=== PATIENT | female | born 1965 | race Caucasian/White ===

== ENCOUNTER 2016-09-21 09:36 | Emergency (ER) | payer OTHER ==
[~2016-09-21] VITALS: Ht 160 cm; Wt 89.9 kg
[~2016-09-21 09:36] MED LIST: ALBUAER19 INH; ALMO1TAB PO; CLB/200 PO; EFF75 PO; FERR325T5 PO; INDSR/60 PO; LEVO25TA5 PO; PRLSR20 PO; TOPI100T45 PO
[2016-09-21 09:39] VITALS: TEMP 36.5; Ht 160 cm; Wt 89.9 kg
[2016-09-21] MEDS ORDERED: SODIUM CHLORIDE 0.9% 1000ML 500 ML IV STA (10:06)
[2016-09-21] MEDS ORDERED: SODIUM CHLORIDE 0.9% 1000ML 1,000 ML IV STA (10:06)
--- NOTE | 2016-09-21 10:42 | EMERGENCY ROOM VISIT NOTE ---
History Report prepared by Skip: Erich Antoine Under the Supervision of: Dr. Archie Martin M.D. First contact with patient: 10:03 Chief Complaint: VAGINAL BLEEDING Stated Complaint: VAGINAL BLEEDING History of Present Illness The patient is a 50 year old female who presents to the Emergency Room with complaints of an abnormally heavy menstrual period for the past three days. The patient saturated an overnight pad. The bleeding is menstrual in appearance. The patient's period was on time. Her menstrual cycle has been occurring regularly, however she has noticed that the bleeding is gradually becoming heavier. The patient also complains of some abdominal soreness. She is not on any blood thinners. The patient has never used control to regulate her menstrual cycles. The patient has a history of anemia, for which she has been taking iron supplements. She does have a uterine polyp. Source of History: patient Onset: three days Position: other (vaginal) Symptom Intensity: heavy Quality: other (bleeding) Associated Symptoms: + abdominal pain Review of Systems See HPI for pertinent positives & negatives. A total of 10 systems reviewed and were otherwise negative. Past Medical & Surgical Medical Problems: (1) Hypertension Nos (2) Lumbago (3) Lumbar Disc Displacement (4) Lumbosacral Spondylosis (5) Restless Legs Syndrome Surgical Problems: (1) S/P appendectomy Family History FH: cancer FH: hypertension Social History Smoking Status: Never Smoker Alcohol Use: none Drug Use: none Marital Status: Housing Status: lives with family Occupation Status: employed Current/Historical Medications Scheduled Albuterol Inhaler (Ventolin Inhaler), 2 PUFFS INH QID Celecoxib (CeleBREX), 200 MG PO BID Ferrous Sulfate (Ferrous Sulfate), 325 MG PO DAILY Levothyroxine Sodium (Levothyroxine Sodium), 25 MCG PO DAILY Omeprazole (Prilosec), 20 MG PO DAILY Propranolol Hcl (Propranolol ER), 60 MG PO DAILY Sertraline (Zoloft), 1 TAB PO DAILY Topiramate (Topamax), 100 MG PO QPM Scheduled PRN Almotriptan Malate (Axert), 12.5 MG PO UD PRN for Migraine Oxycodone Ir (Roxicodone Ir), 1-2 TAB PO Q4H PRN for Pain Allergies Coded Allergies: Naproxen (Unverified Allergy, Mild, NAUSEA, 03/06/16) NSAIDs (Verified Adverse Reaction, Unknown, has ulcer, 03/06/16) Physical Exam Vital Signs Date Time Temp Pulse Resp B/P Pulse Ox O2 Delivery O2 Flow Rate FiO2 09/21/16 14:26 66 20 118/80 100 09/21/16 13:11 70 116/74 95 Room Air 09/21/16 11:16 54 20 114/75 100 09/21/16 09:39 36.5 58 16 120/84 96 Room Air Physical Exam GENERAL: Patient is in no acute distress. HEENT: No acute trauma, normocephalic atraumatic, mucous membranes moist, no nasal congestion, no scleral icterus. NECK: No stridor, no adenopathy, no meningismus, trachea is midline. LUNGS: Clear to auscultation bilaterally, no wheeze, no rhonchi, breath sounds equal. HEART: Without murmurs gallops or rubs, regular rate and rhythm. ABDOMEN: Soft, nontender, bowel sounds positive, no hernias, no peritonitis. EXTREMITIES: No cyanosis or edema, full range of motion of all the joints without pain or difficulty, no signs for acute trauma. NEUROLOGIC: Oriented x 3, no acute motor or sensory deficits, no focal weakness. SKIN: No rash, no jaundice, no diaphoresis. VAGINAL: Menstrual-appearing blood from cervix, constant trickle of blood noted , no cervicitis. Medical Decision & Procedures ER Provider Diagnostic Interpretation: US results and stated below per my review and radiologist interpretation: EXAMINATION: PELVIC ULTRASOUND (transabdominal and endovaginal scanning) CLINICAL HISTORY: Vaginal bleeding COMPARISON STUDY: None FINDINGS: The uterus measured 5.4 x 4.8 x 6.2 cm. The endometrial stripe appeared heterogeneous in the fundal fourth portion measures 11 mm. There is a complex 15 mm lesion within the cervix, possibly representing a nabothian gland cyst with internal debris. Other cervical lesions however cannot be excluded. The right ovary was poorly demonstrated. There are few cysts, likely representing ovarian follicles. There is also associated angular soft tissue structure possibly ovarian. An MRI might be considered in follow-up for further evaluation. The left ovary measured 28 x 17 x 15 mm. There is no ultrasonographic evidence of ovarian torsion. It should be noted that ovarian torsion can be present with normal Doppler ultrasonographic findings. There was no evidence of pathologic free pelvic fluid. IMPRESSION: 1. Heterogeneous 11 mm endometrial stripe. 2. Complex 15 mm cervical lesion possibly representing a complex nabothian gland cyst 3. Ultrasonographically normal left ovary 4. Somewhat unusual appearance of the right ovary which appears somewhat angular with adjacent fluid. An MRI might be considered in follow-up for further evaluation Electronically signed by: Kiran Peña M.D. 09/21/2016 12:21 PM Dictated Date/Time: 09/21/2016 12:16 PM Laboratory Results 09/21/16 10:20 09/21/16 10:20 Test 09/21/16 10:20 Red Blood Count 4.51 M/uL (4.2-5.4) Mean Corpuscular Volume 90.5 fL (80-100) Mean Corpuscular Hemoglobin 29.9 pg (25-34) Mean Corpuscular Hemoglobin Concent 33.1 g/dl (32-36) RDW Standard Deviation 41.4 fL (36.4-46.3) RDW Coefficient of Variation 12.6 % (11.5-14.5) Mean Platelet Volume 10.5 fL (7.4-10.4) Prothrombin Time 10.2 SECONDS (9.0-12.0) Prothromb Time International Ratio 1.0 (0.9-1.1) Activated Partial Thromboplast Time 24.8 SECONDS (21.0-31.0) Partial Thromboplastin Ratio 1.0 Anion Gap 11.0 mmol/L (3-11) Est Creatinine Clear Calc Drug Dose 88.2 ml/min Estimated GFR () 96.6 Estimated GFR (Non- 83.4 BUN/Creatinine Ratio 16.7 (10-20) Calcium Level 8.7 mg/dl (8.5-10.1) Human Chorionic Gonadotropin, Qual NEG (NEG) Laboratory results reviewed by me. Medications Administered Medications (Trade) Dose Ordered Sig/Aubrey Route Start Time Stop Time Status Last Admin Dose Admin Sodium Chloride 500 ml @ 999 mls/hr Q31M STAT IV 09/21/16 10:06 09/21/16 10:36 DC 09/21/16 10:23 999 MLS/HR Sodium Chloride (Nss 1000ml) 1,000 ml @ 200 mls/hr Q5H STAT IV 09/21/16 10:06 09/21/16 15:05 DC 09/21/16 10:23 200 MLS/HR Morphine Sulfate (MoRPHine SULFATE INJ) 4 mg NOW STAT IV 09/21/16 13:10 09/21/16 13:11 DC 09/21/16 13:39 4 MG ED Course 1003: The patient was evaluated in room C8. A complete history and physical exam was performed. 1006: NSS 1000 ml @ 200 mls/hr, NSS 500 ml @ 999 mls/hr. 1300: Vaginal exam performed. Patient asked for something for pain. 1310: Morphine Sulfate 4 mg IV. 1320:Spoke with Dr. Ruiz, Obstetrics & Gynecology. He will come to see her in the ED. 1345: Dr. Ruiz is in with the patient. 1350: Dr. Ruiz recommends the patient be started on Aygestin. She can be discharged. 1400: Reassessed the patient. She would like something for pain. Discussed the findings with her. She verbalized understanding and agreement of the treatment plan. The patient is ready for discharge. 1415: The prescription drug monitoring program was evaluated for this patient. Medical Decision Differential diagnosis includes uterine fibroids, heavy menstrual cycle, anemia , electrolyte imbalance, dehydration, coagulopathy. There is no leukocytosis or worrisome anemia. No significant electrolyte abnormality or kidney failure. testing is negative. There is no coagulopathy. Pelvic ultrasound shows a thickened endometrium, a nabothian cyst , right ovary had some fluid around it and the ovary was slightly unusual in appearance and follow-up was suggested. No large uterine fibroid noted. The patient was having menstrual appearing vaginal bleeding from her cervix per my exam. The bleeding was not excessive. I did contact the on-call OB doctor. The patient was seen by OB here in the ER. The patient is being discharged on Aygestin to be seen in the office next week. If her bleeding worsens, she will return to the ED. During the patient's ER stay, she received IV saline, she was given a dose of IV morphine for pain control. She has done well. She is not toxic, she is not tachycardic or hypotensive. [place] Drug Monitoring Program Search Results: patient reviewed within database, no issues identified Consults Time Called: 1310 Consulting Physician: Dr. Ruiz, Obstetrics & Gynecology Returned Call: 1320 1320:Spoke with Dr. Ruiz, Obstetrics & Gynecology. He will come to see her in the ED. Impression Primary Impression: Vaginal bleeding Scribe Attestation The scribe's documentation has been prepared under my direction and personally reviewed by me in its entirety. I confirm that the note above accurately reflects all work, treatment, procedures, and medical decision making performed by me. Departure Information Dispostion Home / Self-Care Prescriptions Oxycodone Ir (Roxicodone Ir) 5 Mg Tab 1-2 TAB PO Q4H Y for Pain, #10 TAB Prov: Archie Martin M.D. 09/21/16 Referrals Jordyn Arevalo M.D. 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
[2016-09-21 10:43] LABS: HEMATOCRIT 40.8 % (37-47); MEAN CELL VOLUME 90.5 fL (80-100); MEAN CORPUSCULAR HEMOGLOBIN 29.9 pg (25-34); MEAN CORPUSCULAR HGB CONC 33.1 g/dl (32-36); MEAN PLATELET VOLUME 10.5 fL (7.4-10.4); PLATELET COUNT 247 K/uL (130-400); RED BLOOD COUNT 4.51 M/uL (4.2-5.4); WHITE BLOOD COUNT 5.37 K/uL (4.8-10.8)
[2016-09-21 11:01] LABS: PROTHROMBIN TIME (PATIENT) 10.2 SECONDS (9.0-12.0)
[2016-09-21 11:12] LABS: PREG INTERNAL NEGATIVE QC NEG CLEAR BACKGROUND; PREG INTERNAL POSITIVE QC POS CONTROL LINE
[2016-09-21 11:14] LABS: BUN/CREATININE RATIO 16.7 (10-20); CALCIUM 8.7 mg/dl (8.5-10.1); CREATININE 0.83 mg/dl (0.60-1.20); POTASSIUM 3.9 mmol/L (3.5-5.1)
[2016-09-21] MEDS ORDERED: SERT50TA PO (11:17)
--- NOTE | 2016-09-21 12:23 | DIAGNOSTIC IMAGING REPORT ---
EXAMINATION: PELVIC ULTRASOUND (transabdominal and endovaginal scanning) CLINICAL HISTORY: Vaginal bleeding COMPARISON STUDY: None FINDINGS: The uterus measured 5.4 x 4.8 x 6.2 cm. The endometrial stripe appeared heterogeneous in the fundal fourth portion measures 11 mm. There is a complex 15 mm lesion within the cervix, possibly representing a nabothian gland cyst with internal debris. Other cervical lesions however cannot be excluded. The right ovary was poorly demonstrated. There are few cysts, likely representing ovarian follicles. There is also associated angular soft tissue structure possibly ovarian. An MRI might be considered in follow-up for further evaluation. The left ovary measured 28 x 17 x 15 mm. There is no ultrasonographic evidence of ovarian torsion. It should be noted that ovarian torsion can be present with normal Doppler ultrasonographic findings. There was no evidence of pathologic free pelvic fluid. IMPRESSION: 1. Heterogeneous 11 mm endometrial stripe. 2. Complex 15 mm cervical lesion possibly representing a complex nabothian gland cyst 3. Ultrasonographically normal left ovary 4. Somewhat unusual appearance of the right ovary which appears somewhat angular with adjacent fluid. An MRI might be considered in follow-up for further evaluation Electronically signed by: Kiran Peña M.D. 09/21/2016 12:21 PM Dictated Date/Time: 09/21/2016 12:16 PM
[2016-09-21] MEDS ORDERED: MoRPHine SULFATE 4 MG/ML 1 ML CARP\\VIAL IV STA (13:10)
[2016-09-21] MEDS ORDERED: OXYC1TAB3 PO (14:10)
[2016-09-21 14:26] VITALS: BP 118/80; PULSE 66; O2SAT 100
== END 2016-09-21 14:29 | disposition home or self-care (01) ==
LOC: C.EDB 09:38 → C.EDC 14:29
DX: N93.9 Abnormal uterine and vaginal bleeding, unspecified (principal); N84.0 Polyp of corpus uteri; I10 Essential (primary) hypertension; G25.81 Restless legs syndrome; Z82.49 Family history of ischemic heart disease and other diseases of the circulatory system; Z79.899 Other long term (current) drug therapy

== ENCOUNTER → 2016-12-13 | Outpatient (CLI) | payer OTHER ==
[~2016-12-13] MED LIST changes: +BUPR-79 PO; +BUSP5TAB59 PO; +CYAN100073; -EFF75 PO; +LITH150C6 PO; +OXYC1TAB3 PO; +QUET1TAB32 PO; +SERT-234 PO; +SERT50TA PO; +SYN50 PO; +TOPI200T14 PO; +VNTHFA/IN INH
== END | disposition home or self-care (01) ==
LOC: C.LABBC 13:21
PROVIDERS: ATTEND Physician Assistant
DX: E53.8 Deficiency of other specified B group vitamins (principal)

== ENCOUNTER 2017-03-04 12:07 | Emergency (ER) | payer OTHER ==
[~2017-03-04] VITALS: Ht 160 cm; Wt 92.0 kg
[~2017-03-04 12:07] MED LIST changes: -BUPR-79 PO; -BUSP5TAB59 PO; -CYAN100073; -LITH150C6 PO; -QUET1TAB32 PO; -SERT-234 PO; -SYN50 PO; -TOPI200T14 PO; -VNTHFA/IN INH
[2017-03-04 12:13] VITALS: Ht 160 cm; Wt 92.0 kg
[2017-03-04 13:04] LABS: HEMATOCRIT 43.1 % (37-47); MEAN CELL VOLUME 92.5 fL (80-100); MEAN CORPUSCULAR HEMOGLOBIN 29.8 pg (25-34); MEAN CORPUSCULAR HGB CONC 32.3 g/dl (32-36); MEAN PLATELET VOLUME 9.7 fL (7.4-10.4); PLATELET COUNT 298 K/uL (130-400); RED BLOOD COUNT 4.66 M/uL (4.2-5.4); WHITE BLOOD COUNT 8.06 K/uL (4.8-10.8)
[2017-03-04 13:07] LABS: URINE APPEARANCE CLEAR (CLEAR); URINE BILIRUBIN NEG (NEG); URINE COLOR YELLOW; URINE NITRITE NEG (NEG); URINE SPECIFIC GRAVITY 1.013 (1.000-1.030); UROBILINOGEN NEG (NEG); ZZUR CULT IF INDIC CLEAN CATCH NO
[2017-03-04 13:09] LABS: MANUAL MICROSCOPIC REQUIRED? NO; REVIEW REQ? NO
[2017-03-04 13:26] LABS: BUN/CREATININE RATIO 15.2 (10-20); CALCIUM 8.8 mg/dl (8.5-10.1); CREATININE 0.9 mg/dl (0.60-1.20); POTASSIUM 3.9 mmol/L (3.5-5.1)
[2017-03-04 13:45] LABS: BENZODIAZEPINE, URINE NEG (NEG); COCAINE,URINE NEG (NEG); PHENCYCLIDINE, URINE NEG (NEG)
[2017-03-04] MEDS ORDERED: QUET1TAB32 PO (14:07)
[2017-03-04] MEDS ORDERED: TOPI200T14 PO (14:07)
[2017-03-04] MEDS ORDERED: BUPR-79 PO (14:07)
[2017-03-04] MEDS ORDERED: SERT-234 PO (14:07)
[2017-03-04] MEDS ORDERED: VNTHFA/IN INH (14:08)
--- NOTE | 2017-03-04 14:57 | EMERGENCY ROOM VISIT NOTE ---
History Report prepared by Skip: Soledad Brown Under the Supervision of: Dr. Avi Vargas M.D. First contact with patient: 12:25 Chief Complaint: MENTAL HEALTH EVALUATION Stated Complaint: SEVERE DEPRESSION/ANXIETY History of Present Illness The patient is a 51 year old female who presents to the Emergency Room with complaints of severe and worsening depression starting a few days ago. The patient had been previously living with her ex. About a month ago, her ex kicked her out of the apartment. She is now living with her mom. She has increased crying episodes. She denies any suicidal or homicidal ideation. The patient has been taking her psychiatric medications as prescribed without relief. She is unable to sleep as normal at night. She eats one meal a day. She denies any recreational drug or alcohol use. The patient denies urinary symptoms , or any other complaints. She no longer has her menstrual periods due to a history of recent DNC and ablation. Source of History: patient Onset: a few days ago Position: other (global) Symptom Intensity: severe Quality: other (depression) Timing: worsening Modifying Factors (Relieving): other (prescribed psychiatric medications without relief) Associated Symptoms: No urinary symptoms Review of Systems All systems have been listed, reviewed, and are negative other than those previously mentioned. Please see Additional Medical History Sheet. Past Medical & Surgical Medical Problems: (1) Hypertension Nos (2) Lumbago (3) Lumbar Disc Displacement (4) Lumbosacral Spondylosis (5) Restless Legs Syndrome Surgical Problems: (1) S/P appendectomy Family History FH: cancer FH: hypertension Social History Smoking Status: Never Smoker Alcohol Use: none Drug Use: none Marital Status: Housing Status: lives with family Occupation Status: employed Current/Historical Medications Scheduled Albuterol Hfa (Ventolin Hfa), 2 PUFFS INH QID Bupropion (Wellbutrin Sr), 150 MG PO DAILY Celecoxib (CeleBREX), 200 MG PO DAILY Ferrous Sulfate (Ferrous Sulfate), 325 MG PO DAILY Levothyroxine Sodium (Levothyroxine Sodium), 25 MCG PO DAILY Omeprazole (Prilosec), 20 MG PO DAILY Propranolol Hcl (Propranolol ER), 60 MG PO DAILY Quetiapine Fumarate (Seroquel), 50 MG PO QPM Sertraline (Zoloft), 100 MG PO DAILY Topiramate (Topamax), 200 MG PO QPM Scheduled PRN Almotriptan Malate (Axert), 12.5 MG PO UD PRN for Migraine Allergies Coded Allergies: Naproxen (Unverified Allergy, Mild, NAUSEA, 03/06/16) NSAIDs (Verified Adverse Reaction, Unknown, has ulcer, 03/06/16) Physical Exam Vital Signs Date Time Temp Pulse Resp B/P (MAP) Pulse Ox O2 Delivery O2 Flow Rate FiO2 03/04/17 15:04 36.7 70 18 126/84 96 03/04/17 12:13 36.7 70 18 126/84 96 Room Air Physical Exam GENERAL: Patient appears despondent, tearful. SKIN: No erythema, pallor, cyanosis or rash HEENT: Normal head, pupils equal, reactive to light and accommodation. LUNGS: Clear to auscultation. No wheezes, no rales, no rhonchi. HEART: No murmurs. No gallops. No rubs ABDOMEN: No masses, no rebound, no hepatomegaly or splenomegaly. EXTREMITIES: No signs of trauma or infection. NEUROLOGIC: Cranial nerves II-XII within normal limits. No gross motor sensory function deficits. PSYCHIATRIC: Awake, alert. Normal affect. Patient appears despondent, tearful. She denies any suicidal or homicidal ideation. Medical Decision & Procedures Laboratory Results 03/04/17 12:46 03/04/17 12:46 Test 03/04/17 12:30 03/04/17 12:46 Urine Color YELLOW Urine Appearance CLEAR (CLEAR) Urine pH 6.0 (4.5-7.5) Urine Specific [place] 1.013 (1.000-1.030) Urine Protein NEG (NEG) Urine Glucose (UA) NEG (NEG) Urine Ketones NEG (NEG) Urine Occult Blood NEG (NEG) Urine Nitrite NEG (NEG) Urine Bilirubin NEG (NEG) Urine Urobilinogen NEG (NEG) Urine Leukocyte Esterase NEG (NEG) Urine Test NEG (NEG) Urine Opiates Screen NEG (NEG) Urine Methadone, Qualitative NEG (NEG) Urine Barbiturates NEG (NEG) Urine Phencyclidine (PCP) Level NEG (NEG) Ur Amphetamine/Methamphetamine NEG (NEG) MDMA (Ecstasy) Screen POS (NEG) Urine Benzodiazepines Screen NEG (NEG) Urine Cocaine Metabolite NEG (NEG) Urine Marijuana (THC) NEG (NEG) Red Blood Count 4.66 M/uL (4.2-5.4) Mean Corpuscular Volume 92.5 fL (80-100) Mean Corpuscular Hemoglobin 29.8 pg (25-34) Mean Corpuscular Hemoglobin Concent 32.3 g/dl (32-36) RDW Standard Deviation 43.6 fL (36.4-46.3) RDW Coefficient of Variation 12.9 % (11.5-14.5) Mean Platelet Volume 9.7 fL (7.4-10.4) Anion Gap 8.0 mmol/L (3-11) Est Creatinine Clear Calc Drug Dose 81.4 ml/min Estimated GFR () 87.0 Estimated GFR (Non- 75.1 BUN/Creatinine Ratio 15.2 (10-20) Calcium Level 8.8 mg/dl (8.5-10.1) Total Bilirubin 0.2 mg/dl (0.2-1) Aspartate Amino Transf (AST/SGOT) 9 U/L (15-37) Alanine Aminotransferase (ALT/SGPT) 15 U/L (12-78) Alkaline Phosphatase 74 U/L (45-117) Total Protein 7.6 gm/dl (6.4-8.2) Albumin 3.8 gm/dl (3.4-5.0) Globulin 3.8 gm/dl (2.5-4.0) Albumin/Globulin Ratio 1.0 (0.9-2) Ethyl Alcohol mg/dL < 3.0 mg/dl (0-3) Laboratory results as stated above per my review. ED Course 1225: Past medical records reviewed. The patient was evaluated in room A08. A complete history and physical examination was performed. 1350: I discussed the patient's case with Cindy, psych liaison nurse. 1500: Upon reevaluation, the patient appeared to have improvement of her symptoms. I discussed today's findings with her. She verbalized agreement of the treatment plan. She was discharged home. Medical Decision Medication Reconciliation: I attest that I have personally reviewed the patient' s current medication list. Blood pressure Screening: Patient was found to have normal blood pressure on screening and does not require follow up. Differential diagnosis includes but is not limited to depression, anxiety, metabolic disorder, endocrinologic problem. Multiple labs were obtained. Please see above. The patient had a long discussion with the psych liaison person who scheduled follow-up appointments for her. The patient is very comfortable with that. She does not feel that she needs to be admitted at this time. The patient is not suicidal/homicidal. Consults Time Called: 1348 Consulting Physician: Cindy psych liaison nurse Returned Call: 1350 I discussed the patient's case with Cindy psych liaison . Impression Primary Impression: Depression Scribe Attestation The scribe's documentation has been prepared under my direction and personally reviewed by me in its entirety. I confirm that the note above accurately reflects all work, treatment, procedures, and medical decision making performed by me. Departure Information Dispostion Home / Self-Care Referrals Jordyn Arevalo M.D. (PCP) Forms HOME CARE DOCUMENTATION FORM, IMPORTANT VISIT INFORMATION Patient Instructions My [facility] Additional Instructions Follow-up with the a psychiatric counselor as scheduled. Return here immediately if you are feeling more depressed, suicidal or homicidal. Continue all of your current medications as prescribed.
[2017-03-04 15:04] VITALS: BP 126/84; PULSE 70; TEMP 36.7; O2SAT 96
== END 2017-03-04 15:05 | disposition home or self-care (01) ==
LOC: C.EDB 12:08 → C.EDA 15:05
DX: F32.9 Major depressive disorder, single episode, unspecified (principal); I10 Essential (primary) hypertension; M47.897 Other spondylosis, lumbosacral region; G25.81 Restless legs syndrome; Z82.49 Family history of ischemic heart disease and other diseases of the circulatory system

== ENCOUNTER → 2017-05-12 | Outpatient (CLI) | payer OTHER ==
[~2017-05-12] MED LIST changes: -ALBUAER19 INH; +BUPR-79 PO; -OXYC1TAB3 PO; +QUET1TAB32 PO; +SERT-234 PO; -SERT50TA PO; -TOPI100T45 PO; +TOPI200T14 PO; +VNTHFA/IN INH
[2017-05-12 13:28] LABS: BASO % 0.2 %; BASO ABS # 0.03 K/uL (0-0.2); COMPLETE YES; EOS % 0.2 %; HEMATOCRIT 43.6 % (37-47); IG% 0.9 %; LYMPH % 4.5 %; MEAN CELL VOLUME 93.2 fL (80-100); MEAN CORPUSCULAR HEMOGLOBIN 30.8 pg (25-34); MEAN PLATELET VOLUME 9.4 fL (7.4-10.4); MONO % 2.2 %; PLATELET COUNT 392 K/uL (130-400); RED BLOOD COUNT 4.68 M/uL (4.2-5.4); WHITE BLOOD COUNT 13.36 K/uL (4.8-10.8)
[2017-05-12 13:47] LABS: BLOOD UREA NITROGEN 13 mg/dl (7-18); CARBON DIOXIDE 21 mmol/L (21-32); CHLORIDE 112 mmol/L (98-107); CREATININE 0.94 mg/dl (0.60-1.20); POTASSIUM 3.9 mmol/L (3.5-5.1); SODIUM 141 mmol/L (136-145)
--- NOTE | 2017-05-16 14:48 | CODING QUERY NO DIAGNOSIS ---
: 1965 TREATMENT RENDERED WITHOUT A DIAGNOSIS To promote full compliance with coding requirements relating to patient care, physician participation is requested in all cases of certified procedural coder uncertainty. Please assist us with providing a diagnosis/symptom for the test(s) below: A diagnosis/symptom was not documented on your Order. A valid diagnosis/symptom is required to bill all insurances. Please remember that we are unable to code a diagnosis of rule out, probable, possible, questionable, or suspected. Tests that require a diagnosis: DOS: 05/12/17 * CBC WITH AUTO DIFFERENTIAL DIAGNOSIS: * LITHIUM DIAGNOSIS: * BLOOD UREA NITROGEN DIAGNOSIS: * CREATININE DIAGNOSIS: * ELECTROLYTES DIAGNOSIS: Provider Signature: Date: Thank you Shivani Dacosta Health Information Management Once completed, please kindly fax back to [phone] For questions please call [phone]
== END | disposition home or self-care (01) ==
LOC: C.LAB 13:05
PROVIDERS: ATTEND Psychiatry & Neurology Psychiatry
DX: Z51.81 Encounter for therapeutic drug level monitoring (principal); Z79.899 Other long term (current) drug therapy

== ENCOUNTER 2017-06-18 09:33 | Inpatient (IN) | payer OTHER ==
[2017-06-18] VITALS (7 sets, daily range): BP systolic 91–127; BP diastolic 59–87; PULSE 49–53; TEMP 36.6–36.7; O2SAT 95–100; Ht 160 cm; Wt 92.9 kg
[~2017-06-18] VITALS: Ht 160 cm; Wt 92.9 kg
[2017-06-18] MEDS ORDERED: SODIUM CHLORIDE 0.9% 1000ML 1,000 ML IV SCH (09:58)
[2017-06-18 10:21] LABS: BASO % 0.6 %; BASO ABS # 0.07 K/uL (0-0.2); COMPLETE YES; EOS % 3.5 %; HEMATOCRIT 44.2 % (37-47); IG% 0.8 %; LYMPH % 9.9 %; LYMPH ABS # 1.18 K/uL (1.2-3.4); MEAN CELL VOLUME 95.1 fL (80-100); MEAN CORPUSCULAR HEMOGLOBIN 30.8 pg (25-34); MEAN CORPUSCULAR HGB CONC 32.4 g/dl (32-36); MEAN PLATELET VOLUME 10.2 fL (7.4-10.4); MONO % 6.8 %; NEUT % 78.4 %; PLATELET COUNT 322 K/uL (130-400); RED BLOOD COUNT 4.65 M/uL (4.2-5.4); WHITE BLOOD COUNT 11.94 K/uL (4.8-10.8)
--- NOTE | 2017-06-18 10:21 | DIAGNOSTIC IMAGING REPORT ---
CHEST ONE VIEW PORTABLE CLINICAL HISTORY: Stroke mental status change COMPARISON STUDY: 03/06/2016 FINDINGS: The bones soft tissues and hemidiaphragms are normal. The cardiomediastinal silhouette is normal. The lungs are clear. The pulmonary vasculature is normal. IMPRESSION: Negative chest. The above report was generated using voice recognition software. It may contain grammatical, syntax or spelling errors. Electronically signed by: Artur Wheeler M.D. 06/18/2017 10:19 AM Dictated Date/Time: 06/18/2017 10:19 AM
[2017-06-18] MEDS ORDERED: CYAN100073 (10:29)
[2017-06-18] MEDS ORDERED: LITH150C6 PO (10:29)
[2017-06-18 10:30] LABS: PROTHROMBIN TIME (PATIENT) 10.4 SECONDS (9.0-12.0)
[2017-06-18 10:38] LABS: BLOOD UREA NITROGEN 12 mg/dl (7-18); BUN/CREATININE RATIO 11.6 (10-20); CALCIUM 9.1 mg/dl (8.5-10.1); CARBON DIOXIDE 24 mmol/L (21-32); CHLORIDE 110 mmol/L (98-107); CREATININE 1.06 mg/dl (0.60-1.20); GLUCOSE 91 mg/dl (70-99); MAGNESIUM 2.4 mg/dl (1.8-2.4); POTASSIUM 3.6 mmol/L (3.5-5.1); SODIUM 140 mmol/L (136-145)
--- NOTE | 2017-06-18 10:54 | DIAGNOSTIC IMAGING REPORT ---
HEAD WITHOUT CONTRAST (CT) CT DOSE: 537.48 mGy.cm HISTORY: Stroke TECHNIQUE: Multiaxial CT images of the head were performed without the use of intravenous contrast. A dose lowering technique was utilized adhering to the principles of ALARA. Comparison: None. Findings: The paranasal sinuses and mastoid air cells are clear. The calvarium and skull base are intact. The ventricles and sulci are within normal limits. There is no mass, hematoma, midline shift, or acute infarct. Impression: No acute intracranial abnormality. The above report was generated using voice recognition software. It may contain grammatical, syntax or spelling errors. Electronically signed by: Artur Wheeler M.D. 06/18/2017 10:52 AM Dictated Date/Time: 06/18/2017 10:45 AM
[2017-06-18] MEDS ORDERED: ONDANSETRON INJ 2 MG/ML 2 ML VIAL IV PRN (12:15)
[2017-06-18] MEDS ORDERED: ACETAMINOPHEN 325 MG TAB PO PRN (12:15)
[2017-06-18] MEDS ORDERED: PHARMACIST DISCHARGE MED REC CONSULT PRN (12:15)
--- NOTE | 2017-06-18 12:48 | History and Physical ---
History & Physical Date & Time of Service: Jun 18, 2017 at 12:18 Chief Complaint: Floaters, Tremors, Staggering Primary Care Physician: Jordyn Arevalo M.D. History of Present Illness Source: patient, clinic records, hospital records This is a 51yo F with a PMH of anxiety, depression, chronic migraines, hypothyroidism and chronic back pain who presents with visual changes and bilateral arm tremors x 1 month and a staggering gait x 1 day. Patient was in her normal state of health until a month ago when she started to noticed a "floater" in her R eye that comes and goes. Describes it as a white light that moves across her visual field with associated photophobia. Denies any change to visual acuity, eye pain or tunnel/curtain vision. Has not seen the eye doctor but denies any history of visual floaters. Also started to notice bilateral tremors in hands a month ago that have progressed to include her forearms as well. States that she mainly notices the tremors when she is using her arms for a task, not at rest. Yesterday, patient was at work when she started to "tip over" towards her right side when walking. 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 Was carrying auto parts yesterday and due to imbalanced gait, fell into shelves on her R side. Denies a fall or LOC. Continued to notice herself staggering to the right while ambulating last night and this morning. Associated symptoms include hot and cold paresthesias in R arm and leg. Called PCP but they recommended the patient come to ER for further evaluation. Denies any facial droop, slurred speech, headache, visual changes, vertigo, weakness or numbness in any extremity. Denies any previous history of stroke, clotting disorder or heart disease personally or within family. Is not on blood thinners. Follows with Dr. Whitaker for migraines. On topomax and propranolol for prophylaxis. Takes lithium, BuSpar, Wellbutrin and Zoloft for anxiety/ depression and Seroquel for insomnia. Past Medical/Surgical History Medical Problems: (1) Anxiety Status: Chronic (2) Chronic back pain Status: Chronic (3) Depression Status: Chronic (4) Hypertension Nos Status: Chronic (5) Hypothyroidism Status: Chronic (6) Insomnia Status: Chronic (7) Lumbago Status: Chronic (8) Lumbar Disc Displacement Status: Chronic (9) Lumbosacral Spondylosis Status: Chronic (10) Migraines Status: Chronic (11) Restless Legs Syndrome Status: Chronic Surgical Problems: (1) S/P appendectomy Status: Resolved Family History FH: cancer FH: hypertension Social History Smoking Status: Never Smoker Alcohol Use: none Drug Use: none Marital Status: Occupational Status: employed Multi-Drug Resistant Organisms History of MDRO: No Allergies Coded Allergies: Naproxen (Unverified Allergy, Mild, NAUSEA, 06/18/17) NSAIDs (Verified Adverse Reaction, Unknown, has ulcer, 06/18/17) Home Medications Scheduled Albuterol Hfa (Ventolin Hfa), 2 PUFFS INH QID Bupropion (Wellbutrin Sr), 150 MG PO DAILY Buspirone Hcl (Buspirone Hcl), 1 TAB PO TID Celecoxib (CeleBREX), 200 MG PO DAILY Ferrous Sulfate (Ferrous Sulfate), 325 MG PO TID Levothyroxine Sodium (Levothyroxine Sodium), 25 MCG PO DAILY Omeprazole (Prilosec), 20 MG PO DAILY Propranolol Hcl (Propranolol ER), 60 MG PO DAILY Quetiapine Fumarate (Seroquel), 50 MG PO QPM Sertraline (Zoloft), 200 MG PO DAILY Topiramate (Topamax), 200 MG PO BID Scheduled PRN Almotriptan Malate (Axert), 12.5 MG PO UD PRN for Migraine Miscellaneous Medications Cyanocobalamin (B12) [place] Carbonate ([place] Carbonate), 300 MG PO Review of Systems Ten systems reviewed and negative except as noted in the HPI. Physical Exam Vital Signs Date Time Temp Pulse Resp B/P (MAP) Pulse Ox O2 Delivery O2 Flow Rate FiO2 06/18/17 11:03 72 16 114/73 98 Room Air 06/18/17 10:46 95 Room Air 06/18/17 09:36 36.6 54 18 121/84 98 Room Air General Appearance: + mild distress Head: normocephalic, atraumatic Eyes: normal inspection, PERRL, EOMI, sclerae normal, funduscopic exam normal ENT: normal ENT inspection, hearing grossly normal, pharynx normal (moist mucous membranes ) Neck: supple, thyroid normal, trachea midline Respiratory/Chest: chest non-tender, lungs clear, normal breath sounds, no respiratory distress, no accessory muscle use Cardiovascular: regular rate, rhythm, no murmur, normal peripheral pulses Abdomen/GI: normal bowel sounds, non tender, soft, no organomegaly Back: normal inspection Extremities/Musculoskelatal: normal inspection, no calf tenderness, no pedal edema, non-tender Neurologic/Psych: counter server II-XII nml as tested, no motor/sensory deficits (FAROM, 5 /5 TONY in all extremities. Light and sharp touch intact. Cerebellar tests intact. ), alert, normal mood/affect (Flattened ), oriented x 3, + abnormal gait (Ataxic gait favoring R side. Imbalanced. ) Skin: normal color, warm/dry, no rash Diagnostics Laboratory Results Results Past 24 Hours Test 06/18/17 10:08 06/18/17 12:08 Range/Units White Blood Count 11.94 4.8-10.8 K/uL Red Blood Count 4.65 4.2-5.4 M/uL Hemoglobin 14.3 12.0-16.0 g/dL Hematocrit 44.2 37-47 % Mean Corpuscular Volume 95.1 80-100 fL Mean Corpuscular Hemoglobin 30.8 25-34 pg Mean Corpuscular Hemoglobin Concent 32.4 32-36 g/dl Platelet Count 322 130-400 K/uL Mean Platelet Volume 10.2 7.4-10.4 fL Neutrophils (%) (Auto) 78.4 % Lymphocytes (%) (Auto) 9.9 % Monocytes (%) (Auto) 6.8 % Eosinophils (%) (Auto) 3.5 % Basophils (%) (Auto) 0.6 % Neutrophils # (Auto) 9.37 1.4-6.5 K/uL Lymphocytes # (Auto) 1.18 1.2-3.4 K/uL Monocytes # (Auto) 0.81 0.11-0.59 K/uL Eosinophils # (Auto) 0.42 0-0.5 K/uL Basophils # (Auto) 0.07 0-0.2 K/uL RDW Standard Deviation 46.3 36.4-46.3 fL RDW Coefficient of Variation 13.4 11.5-14.5 % Immature Granulocyte % (Auto) 0.8 % Immature Granulocyte # (Auto) 0.09 0.00-0.02 K/uL Prothrombin Time 10.4 9.0-12.0 SECONDS Prothromb Time International Ratio 1.0 0.9-1.1 Activated Partial Thromboplast Time 26.6 21.0-31.0 SECONDS Partial Thromboplastin Ratio 1.0 Sodium Level 140 136-145 mmol/L Potassium Level 3.6 3.5-5.1 mmol/L Chloride Level 110 98-107 mmol/L Carbon Dioxide Level 24 21-32 mmol/L Anion Gap 6.0 3-11 mmol/L Blood Urea Nitrogen 12 7-18 mg/dl Creatinine 1.06 0.60-1.20 mg/dl Est Creatinine Clear Calc Drug Dose 70.0 ml/min Estimated GFR () 71.4 Estimated GFR (Non- 61.6 BUN/Creatinine Ratio 11.6 10-20 Random Glucose 91 70-99 mg/dl Calcium Level 9.1 8.5-10.1 mg/dl Magnesium Level 2.4 1.8-2.4 mg/dl Troponin I < 0.015 0-0.045 ng/ml Diagnostic Radiology CT head: Impression: No acute intracranial abnormality. CXR normal EKG Sinus bradycardia Nonspecific T wave abnormality (T wave inversion in III, V1-V2) Abnormal ECG No previous ECGs available Confirmed by SVETLANA BIRMINGHAM Also reviewed by me. Impression Assessment and Plan This is a 51yo F with a PMH of anxiety, depression, chronic migraines, hypothyroidism and chronic back pain who presents with visual changes and bilateral arm tremors x 1 month and a staggering gait x 1 day. Ataxic gait, bilateral tremors, R-sided paresthesias: -Bilateral tremors x 1 month -Ataxic, R-sided gait and R-sided paresthesias x 2 days -CVA vs. drug-induced (on Seroquel, [place], Topamax) -CT head negative -[place] level pending -EEG ordered -Stroke work up: -MRI brain combo -MRA head, neck combo -Echo with bubble study -PT/OT/Speech evals -Neuro consulted Visual floaters: -Present x 1 mo -With associated photophobia -No visual acuity change, pain, curtains/tunnel vision -Has not seen any stunner and shackler -Recommended out-patient follow-up for dilated eye exam to r/o retinal tear, detachment Anxiety/depression: -Managed primarily by PCP -Has been encouraged to see psychiatrist, counselor -On Zoloft and Wellbutrin for depression -BuSpar for anxiety -Seroquel for insomnia -Denies SI/HI currently. States that mood is stable Hypothyroidism: -TSH pending -Continue home dose Synthroid H/o migraines: -Stable, no headache in past month -Continue home dose Topamax, propranolol -Triptan PRN Chronic back pain: -Stable -Cont home dose gabapentin DVT Ppx: Lovenox Code status: FULL PCP: Mickey Dispo: special services director consult placed, as per stroke set Patient seen in collaboration with Dr. López. Please see addendum. ATTENDING ADDENDUM ; pt seen and examined in agreement with H&P by Mary Becerril PA-C labs and images reviewed 51 yo F presents with intermittent visual symptoms , weakness, tremor , balance issues for past 1 months worse in past few days hx of migraine headache -denies of any episodes of headaches having intermittent white spots /floaters in both eyes on EXAM : Gen ; no sign of distress HEENT: sclera non icteric , PERRLA/EOMI Lungs; CTA ht : regular S1/S2 ext : no rash or deformity or edema noted in lower extremities Neuro: no focal neurological deficit noted, no facial droop , normal strength , fine tremors on rt hand 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 to pick and shovel worker things , no resting tremor gait not assessed a/p: WEAKNESS /TREMORS /GAIT DISTURBANCE : pt does not present with typical stoke symptom symptoms has been ongoing for past 1 months no focal deficit noted , speech fluent , no facial droop CT head negative for CVA MRI/MRA of brain ordered pt mentions of having uncontrolled rt sided hand movement few days back no tongue bite , no bowel or bladder incontinence , no prior hx of SZ EEG ordered cont neuro checks on multiple Psychiatric meds [place] level ordered pt is known to Neurology Dr Leung for Migrane treatment Neurology eval requested VISUAL SYMPTOMS /FLOATERS denies of headache , not typical of migraine marisela last vision check was on Sep this year was told everything was fine MRI of brain ordered pt will need out pt eye exam after discharge ABNORMAL TFT : TSH elevated free T3 T4 ordered on Levothyroxine 25mcg daily FULL CODE please refer to H&P by Mary Becerril PA-C for further detail discussion of other issues Level of Care Telemetry Resuscitation Status FULL RESUSCITATION VTE Prophylaxis VTE Risk Assessment Done? Y/N: Yes Risk Level: Moderate Given or contraindicated: Enoxaparin (Lovenox)SQ Additional Copies To Madhu Leung M.D. Westrick, Diann, M.D.
[2017-06-18 13:15] LABS: ESTIMATED AVERAGE GLUCOSE 105 mg/dl; HA1C FLAG Normal (Normal)
[2017-06-18] MEDS ORDERED: BUSP5TAB59 PO (13:43)
[2017-06-18] MEDS ORDERED: SERT-234 PO (13:43)
[2017-06-18] MEDS ORDERED: PNEUMOCOCCAL ADMINISTRATION CHARGE ONE (14:00)
[2017-06-18] MEDS ORDERED: INFLUENZA VIRUS QUAD VACCINE 0.5 ML SYR IM. ONE (14:00)
[2017-06-18] MEDS ORDERED: PNEUMOCOCCAL POLYSACCHARIDES 25 MCG/0.5 ML VIAL/SYR IM. ONE (14:00)
[2017-06-18] MEDS ORDERED: INFLUENZA ADMINISTRATION CHARGE ONE (14:00)
--- NOTE | 2017-06-18 15:31 | EMERGENCY ROOM VISIT NOTE ---
History Report prepared by Skip: Minda Fernandez Under the Supervision of: Dr. Lucas Keenan M.D. First contact with patient: 09:42 Chief Complaint: OTHER COMPLAINT Stated Complaint: FLOATERS, TREMORS, STAGGERING History of Present Illness The patient is a 51 year old female who presents to the Emergency Room with complaints of worsening visual changes for the past month. She states that she has had "floaters" in her eyes for the past month. This has been getting worse recently. She denies any loss of visual acuity. She also notes that she has had "tremors" for the past month as well. The patient states that her hands will suddenly start shaking. Yesterday she started staggering and feels like she is falling to the right side. She fell into one of the shelves at work. This has continued today and she still feels like she is leaning to the right side. The patient called her PCP's office today and they were unable to see her. She was advised to come to the ED for further evaluation. The patient denies any weakness or numbness of the extremities. She denies trouble swallowing or speaking. She denies headache, fevers, cold symptoms, back pain, abdominal pain , nausea, vomiting, and diarrhea. She denies any recent trauma or injury. The patient does not take any blood thinners. Source of History: patient Onset: 1 month ago Position: other (global) Quality: other ("floaters") Timing: worsening Associated Symptoms: No fevers, No headache, No nausea, No vomiting, No abdominal pain, No back pain, No diarrhea, No weakness, No numbness Note: Pt notes tremors and leaning to the right. Review of Systems See HPI for pertinent positives & negatives. A total of 10 systems reviewed and were otherwise negative. Past Medical & Surgical Medical Problems: (1) Anxiety (2) Chronic back pain (3) Depression (4) Hypertension Nos (5) Hypothyroidism (6) Insomnia (7) Lumbago (8) Lumbar Disc Displacement (9) Lumbosacral Spondylosis (10) Migraines (11) Restless Legs Syndrome Surgical Problems: (1) S/P appendectomy Family History FH: cancer FH: hypertension Social History Smoking Status: Never Smoker Alcohol Use: none Drug Use: none Marital Status: Housing Status: lives with family Occupation Status: employed Current/Historical Medications Scheduled Albuterol Hfa (Ventolin Hfa), 2 PUFFS INH QID Bupropion (Wellbutrin Sr), 150 MG PO DAILY Buspirone Hcl (Buspirone Hcl), 1 TAB PO TID Celecoxib (CeleBREX), 200 MG PO DAILY Ferrous Sulfate (Ferrous Sulfate), 325 MG PO TID Levothyroxine Sodium (Levothyroxine Sodium), 25 MCG PO DAILY Omeprazole (Prilosec), 20 MG PO DAILY Propranolol Hcl (Propranolol ER), 60 MG PO DAILY Quetiapine Fumarate (Seroquel), 50 MG PO QPM Sertraline (Zoloft), 200 MG PO DAILY Topiramate (Topamax), 200 MG PO BID Scheduled PRN Almotriptan Malate (Axert), 12.5 MG PO UD PRN for Migraine Miscellaneous Medications Cyanocobalamin (B12) [place] Carbonate ([place]oni Carbonate), 300 MG PO Allergies Coded Allergies: Naproxen (Unverified Allergy, Mild, NAUSEA, 06/18/17) NSAIDs (Verified Adverse Reaction, Unknown, has ulcer, 06/18/17) Physical Exam Vital Signs Date Time Temp Pulse Resp B/P (MAP) Pulse Ox O2 Delivery O2 Flow Rate FiO2 06/18/17 11:03 72 16 114/73 98 Room Air 06/18/17 10:46 95 Room Air 06/18/17 09:36 36.6 54 18 121/84 98 Room Air Physical Exam Constitutional: Vital signs reviewed. Eyes: Pupils are equal round reactive to light. Conjunctiva are noninjected. Limited funduscopic exam demonstrates no retinal tear. ENT: Pharynx is clear without erythema or exudate. Mucous membranes are moist. Neck supple without meningeal signs. Respiratory: Clear to auscultation bilaterally. Breath sounds are equal bilaterally. Cardiovascular: Regular rate and rhythm. No rubs or gallops. GI: Soft, nondistended and nontender. Bowel sounds are present. Musculoskeletal: No peripheral edema. No lower extremity tenderness. Integumentary: No cyanosis. Neurological: The patient is awake and alert. Cranial nerves II-XII are intact. Motor is 5 out of 5 all extremities. Sensation is intact to light touch all extremities except dysesthesia to the right arm. Normal speech. No pronator drift. No limb ataxia. Abnormal gait leaning toward right side. Normal visual baker by confrontation. Resting tremor, both hands. Psychiatric: Normal affect. Medical Decision & Procedures ER Provider Diagnostic Interpretation: Radiology results as stated below per my review and the radiologist's interpretation: HEAD WITHOUT CONTRAST (CT) CT DOSE: 537.48 mGy.cm HISTORY: Stroke TECHNIQUE: Multiaxial CT images of the head were performed without the use of intravenous contrast. A dose lowering technique was utilized adhering to the principles of ALARA. Comparison: None. Findings: The paranasal sinuses and mastoid air cells are clear. The calvarium and skull base are intact. The ventricles and sulci are within normal limits. There is no mass, hematoma, midline shift, or acute infarct. Impression: No acute intracranial abnormality. The above report was generated using voice recognition software. It may contain grammatical, syntax or spelling errors. Electronically signed by: Artur Wheeler M.D. 06/18/2017 10:52 AM Dictated Date/Time: 06/18/2017 10:45 AM CHEST ONE VIEW PORTABLE CLINICAL HISTORY: Stroke mental status change COMPARISON STUDY: 03/06/2016 FINDINGS: The bones soft tissues and hemidiaphragms are normal. The cardiomediastinal silhouette is normal. The lungs are clear. The pulmonary vasculature is normal. IMPRESSION: Negative chest. The above report was generated using voice recognition software. It may contain grammatical, syntax or spelling errors. Electronically signed by: Artur Wheeler M.D. 06/18/2017 10:19 AM Dictated Date/Time: 06/18/2017 10:19 AM Laboratory Results 06/18/17 10:08 Red Blood Count 4.65, Mean Corpuscular Volume 95.1, Mean Corpuscular Hemoglobin 30.8, Mean Corpuscular Hemoglobin Concent 32.4, Mean Platelet Volume 10.2, Neutrophils (%) (Auto) 78.4, Lymphocytes (%) (Auto) 9.9, Monocytes (%) (Auto) 6.8, Eosinophils (%) (Auto) 3.5, Basophils (%) (Auto) 0.6, Neutrophils # (Auto) 9.37, Lymphocytes # (Auto) 1.18, Monocytes # (Auto) 0.81, Eosinophils # (Auto) 0.42, Basophils # (Auto) 0.07 06/18/17 10:08 Test 06/18/17 10:04 06/18/17 10:05 06/18/17 10:08 Bedside Glucose 127 mg/dl (70-90) Estimated Average Glucose 105 mg/dl Hemoglobin A1c 5.3 % (4.5-5.6) White Blood Count 11.94 K/uL (4.8-10.8) Red Blood Count 4.65 M/uL (4.2-5.4) Hemoglobin 14.3 g/dL (12.0-16.0) Hematocrit 44.2 % (37-47) Mean Corpuscular Volume 95.1 fL (80-100) Mean Corpuscular Hemoglobin 30.8 pg (25-34) Mean Corpuscular Hemoglobin Concent 32.4 g/dl (32-36) Platelet Count 322 K/uL (130-400) Mean Platelet Volume 10.2 fL (7.4-10.4) Neutrophils (%) (Auto) 78.4 % Lymphocytes (%) (Auto) 9.9 % Monocytes (%) (Auto) 6.8 % Eosinophils (%) (Auto) 3.5 % Basophils (%) (Auto) 0.6 % Neutrophils # (Auto) 9.37 K/uL (1.4-6.5) Lymphocytes # (Auto) 1.18 K/uL (1.2-3.4) Monocytes # (Auto) 0.81 K/uL (0.11-0.59) Eosinophils # (Auto) 0.42 K/uL (0-0.5) Basophils # (Auto) 0.07 K/uL (0-0.2) RDW Standard Deviation 46.3 fL (36.4-46.3) RDW Coefficient of Variation 13.4 % (11.5-14.5) Immature Granulocyte % (Auto) 0.8 % Immature Granulocyte # (Auto) 0.09 K/uL (0.00-0.02) Prothrombin Time 10.4 SECONDS (9.0-12.0) Prothromb Time International Ratio 1.0 (0.9-1.1) Activated Partial Thromboplast Time 26.6 SECONDS (21.0-31.0) Partial Thromboplastin Ratio 1.0 Anion Gap 6.0 mmol/L (3-11) Est Creatinine Clear Calc Drug Dose 70.0 ml/min Estimated GFR () 71.4 Estimated GFR (Non- 61.6 BUN/Creatinine Ratio 11.6 (10-20) Calcium Level 9.1 mg/dl (8.5-10.1) Magnesium Level 2.4 mg/dl (1.8-2.4) Troponin I < 0.015 ng/ml (0-0.045) Thyroid Stimulating Hormone (TSH) 7.480 uIu/ml (0.300-4.500) Laboratory results as reviewed by me. Medications Administered Medications (Trade) Dose Ordered Sig/Aubrey Route Start Time Stop Time Status Last Admin Dose Admin Sodium Chloride 1,000 ml @ 50 mls/hr Q20H IV 06/18/17 09:58 06/18/17 13:22 DC 06/18/17 09:58 50 MLS/HR ECG Indication: other Rate (beats per minute): 54 Rhythm: sinus bradycardia Findings: no acute ischemic change, no ectopy ED Course 0942: The patient was evaluated in room A10. A complete history and physical exam was performed. 0958: NSS 1000 ml @ 50 mls/hr IV 1109: I reassessed the patient at this time. She has had no change in her symptoms. I discussed the results and treatment plan with the patient. I answered all pertaining questions that she had. She expressed understanding and verbalized agreement. 1115: I spoke with Mary Becerril PA-C. We discussed the patients case. [facility] Medical Decision This is a 51-year-old female who presents with neurologic symptoms. Differential diagnosis includes TIA, CVA, intracranial mass, intracranial hemorrhage, metabolic derangement. I did perform a limited focused review of portions of the patient's old chart on the electronic medical record. The patient was here in February for anxiety and depression. I did evaluate the patient as noted above. Patient is presenting with difficulty walking. She states her symptoms started yesterday while at work. She walks toward the right side when I examined her here. She does not have any appreciable weakness to the right leg but she definitely leans toward that side significantly and has to hold onto something to prevent her from falling over. She also has numbness to the right upper extremity. IV access was established. The patient was placed on a continuous security monitor. I did order and personally review the patient's 12-lead EKG and chest x-ray as described above. I did order and review the patient's blood work as noted in the electronic medical record. I did order a CT of the head. I did review the images myself as well as the radiology report as described above. There is no evidence of acute process. Regarding her free floaters I did recommend she follow up with an branch operation evaluation manager to further examine or redness. She will require neurology consultation and MRI of the brain. I did discuss case with the hospitalist and rn case mgr. Medication Reconcilliation Current Medication List: was personally reviewed by me Blood Pressure Screening Patient's blood pressure: Elevated blood pressure Blood pressure disposition: Elevated BP felt to be situational Consults Time Called: 1111 Consulting Physician: Mary Becerril PA-C Returned Call: 1115 I spoke with Mary Becerril PA-C. We discussed the patients case. The patient will be evaluated by the [facility] for further management. Impression Primary Impression: Right upper extremity numbness Additional Impressions: Tremor Neurologic gait dysfunction Scribe Attestation The scribe's documentation has been prepared under my direct and personally reviewed by me in its entirety. I confirm that the note above accurately reflects all work, treatment, procedures, and medical decision making performed by me. Departure Information Dispostion Being Evaluated By Hospitalist Referrals Jordyn Arevalo M.D. (PCP) Patient Instructions [facility] Problem Qualifiers
[2017-06-18] MEDS ORDERED: GADAVIST IV PRN (17:30)
--- NOTE | 2017-06-18 17:32 | DIAGNOSTIC IMAGING REPORT ---
BRAIN COMBO HISTORY: 51 years-old Female Stroke rule out acute strokelike symptoms with upper extremity tremors and recent fall. Acute blurred vision. COMPARISON: CT head and MRA neck of same day TECHNIQUE: Multiplanar multisequence MRI the brain was obtained both with and without the use of 9 mL Gadavist FINDINGS: No restricted diffusion to suggest acute ischemia. The midline structures including the corpus callosum, brainstem, optic chiasm, infundibulum, pituitary and pineal glands are unremarkable as seen on the sagittal T1 images. No cerebellar tonsillar herniation. No acute intracranial hemorrhage, midline shift, intracranial mass, or abnormal extra-axial collections or hydrocephalus. No significant parenchymal signal abnormalities. The major flow voids at the level of the skull base appear patent. No abnormal intra-axial or extra-axial enhancement. Small left mastoid effusion. Mild ethmoid sinus disease. Scalp and soft tissues are unremarkable. Orbits are symmetric. IMPRESSION: 1. No acute intracranial abnormality identified. No evidence of acute ischemia or abnormal enhancement. 2. Mild ethmoid sinus disease. The above report was generated using voice recognition software. It may contain grammatical, syntax or spelling errors. Electronically signed by: Robert Blancas M.D. 06/18/2017 5:30 PM Dictated Date/Time: 06/18/2017 5:25 PM
--- NOTE | 2017-06-18 17:36 | DIAGNOSTIC IMAGING REPORT ---
MRA OF THE NECK WITH AND WITHOUT CONTRAST CLINICAL HISTORY: Stroke. COMPARISON STUDY: None. TECHNIQUE: Unenhanced and contrast-enhanced MRA of the neck was performed. Injection of 9 mL of Gadavist IV was uneventful. NASCET criteria were utilized to estimate the degree of carotid stenosis. FINDINGS: The bilateral common carotid, internal carotid and vertebral arteries are patent. There is no stenosis within these vessels. No dissection is identified by MRA. IMPRESSION: Normal MRA of the neck. Electronically signed by: Jkae Grimes M.D. 06/18/2017 5:34 PM Dictated Date/Time: 06/18/2017 5:32 PM
--- NOTE | 2017-06-18 17:36 | DIAGNOSTIC IMAGING REPORT ---
MRA HEAD WITHOUT CONTRAST HISTORY: 51 years-old Female Stroke - Attention to [facility] acute strokelike symptoms. Blurred vision with recent fall. Floaters and tremors of both upper extremities for one month. COMPARISON: CT head and MRI brain of same day TECHNIQUE: MR angiography of the head was obtained without contrast according to institutional protocol with 3-D [id number] sequence and MIP reformats. FINDINGS: The imaged bilateral internal carotid arteries, middle and anterior cerebral arteries are widely patent. Anterior communicating artery also appears unremarkable. Vertebral arteries appear to be codominant and are also patent. Basilar and posterior cerebral arteries are also patent. No high-grade stenosis, aneurysm or proximal branch occlusion. IMPRESSION: Unremarkable MRA of the head without aneurysm, high-grade stenosis or proximal branch occlusion. The above report was generated using voice recognition software. It may contain grammatical, syntax or spelling errors. Electronically signed by: Robert Blancas M.D. 06/18/2017 5:34 PM Dictated Date/Time: 06/18/2017 5:30 PM
[2017-06-18] MEDS: ATORVASTATIN 40 MG TAB PO SCH (17:43)
[2017-06-18] MEDS: ALBUTEROL HFA 8 GM INHALER INH SCH ×2 (17:43→20:22)
[2017-06-18] MEDS: ASPIRIN 81 MG ECTAB PO SCH (17:43)
[2017-06-18] MEDS: ENOXAPARIN 40 MG/0.4 ML SYR SC SCH (17:43)
[2017-06-18] MEDS: SODIUM CHLORIDE 0.9% 1000ML 1,000 ML IV SCH (17:44)
[2017-06-18] MEDS: FERROUS SULFATE 325 MG TAB PO SCH (20:23)
[2017-06-18] MEDS: TOPIRAMATE 100 MG TAB PO SCH (20:24)
[2017-06-18] MEDS ORDERED: QUETIAPINE FUMARATE 25 MG TAB PO SCH (21:00)
[2017-06-19 03:58] VITALS: BP 98/64; PULSE 49; TEMP 36.6; O2SAT 97
[2017-06-19] MEDS ORDERED: LEVOTHYROXINE 25 MCG TAB PO SCH (06:00)
[2017-06-19] MEDS: SODIUM CHLORIDE 0.9% 1000ML 1,000 ML IV SCH ×2 (06:33→12:00)
[2017-06-19 07:38] LABS: BASO % 0.6 %; BASO ABS # 0.05 K/uL (0-0.2); COMPLETE YES; EOS % 4.3 %; IG% 0.5 %; LYMPH ABS # 1.03 K/uL (1.2-3.4); MEAN CELL VOLUME 95.6 fL (80-100); MEAN CORPUSCULAR HEMOGLOBIN 30.7 pg (25-34); MEAN CORPUSCULAR HGB CONC 32.1 g/dl (32-36); MEAN PLATELET VOLUME 10.3 fL (7.4-10.4); MONO % 7.3 %; NEUT % 74.3 %; PLATELET COUNT 271 K/uL (130-400); WHITE BLOOD COUNT 7.94 K/uL (4.8-10.8)
[2017-06-19 07:49] LABS: PROTHROMBIN TIME (PATIENT) 10.6 SECONDS (9.0-12.0)
[2017-06-19 08:07] LABS: BUN/CREATININE RATIO 13.6 (10-20); CREATININE 1.03 mg/dl (0.60-1.20); POTASSIUM 3.8 mmol/L (3.5-5.1)
[2017-06-19 08:11] LABS: CHOLESTEROL/HDL RATIO 4.8
[2017-06-19 08:19] VITALS: BP 111/74; PULSE 55; TEMP 36.8; O2SAT 98
[2017-06-19] MEDS ORDERED: BuPROPion SR 150 MG TABCR PO SCH (09:00)
[2017-06-19] MEDS ORDERED: CeleBREX 200 MG CAP PO SCH (09:00)
[2017-06-19] MEDS ORDERED: PANTOprazole SOD 40 MG TAB PO SCH (09:00)
[2017-06-19] MEDS ORDERED: PROPRANOLOL HCL 60 MG LA CAP PO SCH (09:00)
[2017-06-19] MEDS ORDERED: SERTRALINE HCL 100 MG TAB PO SCH (09:00)
[2017-06-19] MEDS: TOPIRAMATE 100 MG TAB PO SCH (09:40)
[2017-06-19] MEDS: ATORVASTATIN 40 MG TAB PO SCH (09:41)
[2017-06-19] MEDS: FERROUS SULFATE 325 MG TAB PO SCH ×2 (09:41→13:52)
[2017-06-19] MEDS: ASPIRIN 81 MG ECTAB PO SCH (09:43)
[2017-06-19] MEDS: ALBUTEROL HFA 8 GM INHALER INH SCH ×3 (09:44→13:52)
--- NOTE | 2017-06-19 10:08 | Progress Note ---
Medicine Progress Note Date & Time of Visit: Jun 19, 2017 at 09:52. (Mary Becerril, P.A.-C.) Subjective Patient seen and examined. Feeling better today. R sided paresthesias and tremors have resolved. Walk and balance have improved and feel "almost back to normal", per patient. Denies headache, confusion, visual change, CP, SOB, abd pain, numbness or weakness in extremities. (Mary Becerril, P.A.-C.) Objective Last 8 Hrs Date Time Temp Pulse Resp B/P (MAP) Pulse Ox O2 Delivery O2 Flow Rate FiO2 06/19/17 08:19 36.8 55 16 111/74 (86) 98 Room Air 06/19/17 04:00 Room Air 06/19/17 03:58 36.6 49 18 98/64 (75) 97 Room Air Physical Exam: General Appearance: No distress Head: normocephalic, atraumatic Eyes: normal inspection, PERRL, EOMI, sclerae normal, conjunctiva normal ENT: normal ENT inspection, hearing grossly normal, pharynx normal (moist mucous membranes ) Neck: supple, thyroid normal, trachea midline Respiratory/Chest: chest non-tender, lungs clear, normal breath sounds, no respiratory distress, no accessory muscle use Cardiovascular: regular rate, rhythm, no murmur, normal peripheral pulses Abdomen/GI: normal bowel sounds, non tender, soft, no organomegaly Back: normal inspection Extremities/Musculoskelatal: normal inspection, no calf tenderness, no pedal edema, non-tender Neurologic/Psych: diesel engineer II-XII nml as tested, no motor/sensory deficits (FAROM, 5 /5 TONY in all extremities. Light and sharp touch intact) alert, normal mood/ affect (Flattened), oriented x 3, gait is improved (seems imbalanced when walking but no R-sided lean or ataxia) Skin: normal color, warm/dry, no rash Laboratory Results: Last 24 Hours Test 06/18/17 10:04 06/18/17 10:05 06/18/17 10:08 06/18/17 13:43 Bedside Glucose 127 mg/dl Estimated Average Glucose 105 mg/dl Hemoglobin A1c 5.3 % White Blood Count 11.94 K/uL Red Blood Count 4.65 M/uL Hemoglobin 14.3 g/dL Hematocrit 44.2 % Mean Corpuscular Volume 95.1 fL Mean Corpuscular Hemoglobin 30.8 pg Mean Corpuscular Hemoglobin Concent 32.4 g/dl Platelet Count 322 K/uL Mean Platelet Volume 10.2 fL Neutrophils (%) (Auto) 78.4 % Lymphocytes (%) (Auto) 9.9 % Monocytes (%) (Auto) 6.8 % Eosinophils (%) (Auto) 3.5 % Basophils (%) (Auto) 0.6 % Neutrophils # (Auto) 9.37 K/uL Lymphocytes # (Auto) 1.18 K/uL Monocytes # (Auto) 0.81 K/uL Eosinophils # (Auto) 0.42 K/uL Basophils # (Auto) 0.07 K/uL RDW Standard Deviation 46.3 fL RDW Coefficient of Variation 13.4 % Immature Granulocyte % (Auto) 0.8 % Immature Granulocyte # (Auto) 0.09 K/uL Prothrombin Time 10.4 SECONDS Prothromb Time International Ratio 1.0 Activated Partial Thromboplast Time 26.6 SECONDS Partial Thromboplastin Ratio 1.0 Sodium Level 140 mmol/L Potassium Level 3.6 mmol/L Chloride Level 110 mmol/L Carbon Dioxide Level 24 mmol/L Anion Gap 6.0 mmol/L Blood Urea Nitrogen 12 mg/dl Creatinine 1.06 mg/dl Est Creatinine Clear Calc Drug Dose 70.0 ml/min Estimated GFR () 71.4 Estimated GFR (Non- 61.6 BUN/Creatinine Ratio 11.6 Random Glucose 91 mg/dl Calcium Level 9.1 mg/dl Magnesium Level 2.4 mg/dl Troponin I < 0.015 ng/ml Thyroid Stimulating Hormone (TSH) 7.480 uIu/ml [place] Level 1.3 mMOL/L Test 06/19/17 07:06 White Blood Count 7.94 K/uL Red Blood Count 4.50 M/uL Hemoglobin 13.8 g/dL Hematocrit 43.0 % Mean Corpuscular Volume 95.6 fL Mean Corpuscular Hemoglobin 30.7 pg Mean Corpuscular Hemoglobin Concent 32.1 g/dl Platelet Count 271 K/uL Mean Platelet Volume 10.3 fL Neutrophils (%) (Auto) 74.3 % Lymphocytes (%) (Auto) 13.0 % Monocytes (%) (Auto) 7.3 % Eosinophils (%) (Auto) 4.3 % Basophils (%) (Auto) 0.6 % Neutrophils # (Auto) 5.90 K/uL Lymphocytes # (Auto) 1.03 K/uL Monocytes # (Auto) 0.58 K/uL Eosinophils # (Auto) 0.34 K/uL Basophils # (Auto) 0.05 K/uL RDW Standard Deviation 46.1 fL RDW Coefficient of Variation 13.2 % Immature Granulocyte % (Auto) 0.5 % Immature Granulocyte # (Auto) 0.04 K/uL Prothrombin Time 10.6 SECONDS Prothromb Time International Ratio 1.0 Sodium Level 143 mmol/L Potassium Level 3.8 mmol/L Chloride Level 114 mmol/L Carbon Dioxide Level 24 mmol/L Anion Gap 6.0 mmol/L Blood Urea Nitrogen 14 mg/dl Creatinine 1.03 mg/dl Est Creatinine Clear Calc Drug Dose 71.5 ml/min Estimated GFR () 73.9 Estimated GFR (Non- 63.8 BUN/Creatinine Ratio 13.6 Random Glucose 95 mg/dl Calcium Level 9.0 mg/dl Triglycerides Level 219 mg/dl Cholesterol Level 257 mg/dl HDL Cholesterol 54 mg/dl LDL Cholesterol, Calculated 159 mg/dl VLDL Cholesterol, Calculated 44 mg/dl Cholesterol/HDL Ratio 4.8 Free Thyroxine 0.66 ng/dl Free Triiodothyronine 2.29 pg/ml [place] Level 0.8 mMOL/L Diagnostic Imaging: Brain MRI: IMPRESSION: 1. No acute intracranial abnormality identified. No evidence of acute ischemia or abnormal enhancement. 2. Mild ethmoid sinus disease. Head MRA: IMPRESSION: Unremarkable MRA of the head without aneurysm, high-grade stenosis or proximal branch occlusion. Neck MRA: IMPRESSION: Normal MRA of the neck. (Mary Becerril ., P.A.-C.) Assessment & Plan This is a 51yo F with a PMH of anxiety, depression, chronic migraines, hypothyroidism and chronic back pain who presents with visual changes and bilateral arm tremors x 1 month and a staggering gait x 1 day. Ataxic gait, bilateral tremors, R-sided paresthesias: resolving -Per patient, bilateral intention tremors and R-sided paresthesias resolved -Improved gait on exam. Still imbalanced but no longer R-leaning, ataxic -Per neuro evaluation, likely 2/2 metabolic etiologies including hypothyroid and mildly elevated lithium level -Increased Synthroid dose. Plan to recheck thyroid labs as out-patient -Awaiting discussion with out-patient psychiatrist regarding lithium dose -CVA work up negative thus far: CT head, Brain MRI, MRA head, MRA neck unremarkable -EEG without electrographic seizures or epileptiform discharges -PT/OT eval and echo with bubble study pending -Follow up with Dr Whitaker out-patient Visual floaters: -Present x 1 mo -With associated photophobia -No visual acuity change, pain, curtains/tunnel vision -Per neuro, could be an ocular migraine but should be evaluated by an cold meat cook to rule out any other retinal etiologies Anxiety/depression: -Managed primarily by [facility] psychiatrist and PCP -Has been encouraged to see counselor -On Zoloft, lithium, wellbutrin, buspar -Seroquel for insomnia -Denies SI/HI currently. States that mood is stable Hypothyroidism: -TSH elvated to 7.48 -Free T4 low at 0.66, T3 low at 2.29 -Increased Synthroid dose to 50mcg daily -Repeat thyroid studies as out-patient H/o migraines: -Stable -Continue home dose Topamax, propranolol -Triptan PRN Chronic back pain: -Stable -Cont home dose gabapentin DVT Ppx: Lovenox Code status: FULL PCP: Mickey Dispo: Okay for discharge once pending studies are completed. Will need follow- up with PCP, neuro, psych, ophtho. Consultants: Neurology Current Inpatient Medications: Current Inpatient Medications Medications (Trade) Dose Ordered Sig/[place]ubrey Route Start Time Stop Time Status Last Admin Dose Admin Atorvastatin Calcium (Lipitor Tab) 40 mg QAM PO 06/18/17 12:15 07/18/17 12:14 06/19/17 09:41 40 MG Aspirin (Ecotrin Tab) 81 mg QAM PO 06/18/17 12:15 07/18/17 12:14 06/19/17 09:43 81 MG Miscellaneous Information (Pharmacist Discharge Med Rec Consult) 1 ea UD PRN N/A 06/18/17 12:15 07/18/17 12:14 Enoxaparin Sodium (Lovenox Inj) 40 mg Q24H SC 06/18/17 14:00 07/18/17 13:59 06/18/17 17:43 40 MG Acetaminophen (Tylenol Tab) 650 mg Q4H PRN PO 06/18/17 12:15 07/18/17 12:14 Ondansetron HCl (Zofran Inj) 4 mg Q6H PRN IV 06/18/17 12:15 07/18/17 12:14 Albuterol (Ventolin Hfa Inhaler) 2 puffs QID INH 06/18/17 17:00 07/18/17 16:59 06/19/17 09:44 2 PUFFS Ferrous Sulfate (Feosol Tab) 325 mg TID PO 06/18/17 21:00 07/18/17 20:59 06/19/17 09:41 325 MG Propranolol HCl (Inderal [place]) 60 mg DAILY PO 06/19/17 09:00 07/19/17 08:59 06/19/17 09:43 60 MG Topiramate (Topamax Tab) 200 mg BID PO 06/18/17 21:00 07/18/17 20:59 06/19/17 09:40 200 MG Bupropion HCl (Wellbutrin-Sr Tab) 150 mg DAILY PO 06/19/17 09:00 07/19/17 08:59 06/19/17 09:40 150 MG Buspirone HCl (Buspar Tab) 5 mg TID PO 06/18/17 21:00 07/18/17 20:59 06/19/17 09:42 5 MG Celecoxib (CeleBREX CAP) 200 mg DAILY PO 06/19/17 09:00 07/19/17 08:59 06/19/17 09:42 200 MG Quetiapine Fumarate (seroQUEL TAB) 50 mg QPM PO 06/18/17 21:00 07/18/17 20:59 06/18/17 20:23 50 MG Sertraline HCl (Zoloft Tab) 200 mg DAILY PO 06/19/17 09:00 07/19/17 08:59 06/19/17 09:40 200 MG Miscellaneous Information (Order Awaiting Action) 1 ea QAM N/A 06/18/17 14:45 07/18/17 14:44 Pantoprazole Sodium (Protonix Tab) 40 mg DAILY PO 06/19/17 09:00 07/19/17 08:59 06/19/17 09:39 40 MG Sodium Chloride 1,000 ml @ 100 mls/hr Q10H IV 06/18/17 16:00 07/18/17 15:59 06/19/17 06:33 100 MLS/HR Gadobutrol (Gadavist) 9 mmol UD PRN IV 06/18/17 17:30 06/22/17 17:29 Levothyroxine Sodium (Synthroid Tab) 50 mcg DAILYBB PO 06/20/17 06:00 07/19/17 05:59 (Mary Becerril, P.A.-C.) The patient was seen and examined Admitted with ataxic gait,bilateral tremors of the hands,and floaters in vision Did not have any focal neurologic deficit Symptoms resolved O/E -Hemodynamically stable Chest-clear Heart-regular, Abdomen-benign Neurology-No focal sensory and or motor deficit Labs and Imaging studies reviewed Appreciate Neurology input and recommendation Will need OP Ophthalmology appoint Agree with the assessment and plan. Dr Christal Espinoza (Luis Manuel Espinoza M.D.)
[2017-06-19 10:44] VITALS: BP 94/61; PULSE 57; TEMP 36.9; O2SAT 95
--- NOTE | 2017-06-19 10:49 | Neurology Consultation ---
Neurology Consultation Date of Consultation: Jun 19, 2017. Attending Physician: Luis Manuel Espinoza M.D. Primary Care Physician: Jordyn Arevalo M.D. Reason for Consultation: Consultation for stroke workup History of Present Illness Source: patient, clinic records, hospital records This is a 51-year-old female who presents for complaints of a staggering, floaters in her vision, and worsening tremors of the last month. She reports that the first symptoms started about a month ago. It was flashes of light going across her vision intermittently. Happens on a daily basis numerous times. She denies any headaches in association. She denies any vision loss of the sometimes her vision gets a little blurry right afterwards. Shortly afterwards she started to get worsening tremors. The 10 to be worse with action compared to rest. Tended occur when she is holding something. She feels like it' s more in the right side compared to the left. She also feels like there are some nonspecific sensory changes on the right arm and leg test described as numbness. Overall she has feels like the right sinus feels different. She denies any significant neck pain. A few days ago she started to feel like she was staggering. Often listing to the right. She denied need dizziness in association. Because of these worsening symptoms and the staggering she decided to go to the emergency room for evaluation. She did try to get an appointment with her primary care but apparently it would've taken a couple weeks to be seen so she was advised to the emergency room. The patient is seen in neurology clinic by Dr. Leung for migraine headaches. She reports they've been under good control and her last migraine headache was in December. She reports that she rarely gets a smaller headache in between. It is notable that the patient started lithium about 2 months ago. On review of systems the patient reports having his sinusitis and bronchitis about a month ago. MRI of the brain report and images were reviewed by myself and is completely normal. MRA of the head and neck was also normal Labs were reviewed. Notable for an elevated TSH of 7.48 and a mildly elevated lithium level of 1.3. Past Medical/Surgical History Medical Problems: (1) Cervical adenopathy Status: Acute (2) Depression Status: Acute (3) Hypertension Nos Status: Chronic (4) Lumbago Status: Chronic (5) Lumbar Disc Displacement Status: Chronic (6) Lumbosacral Spondylosis Status: Chronic (7) Neurologic gait dysfunction Status: Acute (8) Restless Legs Syndrome Status: Chronic (9) Right upper extremity numbness Status: Acute (10) Tremor Status: Acute (11) Vaginal bleeding Status: Acute Chronic back pain, chronic migraine under good control at this time, hypothyroidism Family History Family history significant for father with CAD in his 40s, mother with hypertension, cancer within the family Social History Patient is normally independent in her activities of daily living. No alcohol or tobacco use. No illegal drug use. Drinks one Pepsi per day. Alcohol Use: none Drug Use: none Marital Status: Housing Status: lives with family Occupation Status: employed Allergies Coded Allergies: Naproxen (Unverified Allergy, Mild, NAUSEA, 06/18/17) NSAIDs (Verified Adverse Reaction, Unknown, has ulcer, 06/18/17) Current Inpatient Medications Current Inpatient Medications Medications (Trade) Dose Ordered Sig/[place]rey Route Start Time Stop Time Status Last Admin Dose Admin Atorvastatin Calcium (Lipitor Tab) 40 mg QAM PO 06/18/17 12:15 07/18/17 12:14 06/19/17 09:41 40 MG Aspirin (Ecotrin Tab) 81 mg QAM PO 06/18/17 12:15 07/18/17 12:14 06/19/17 09:43 81 MG Miscellaneous Information (Pharmacist Discharge Med Rec Consult) 1 ea UD PRN N/A 06/18/17 12:15 07/18/17 12:14 Enoxaparin Sodium (Lovenox Inj) 40 mg Q24H SC 06/18/17 14:00 07/18/17 13:59 06/18/17 17:43 40 MG Acetaminophen (Tylenol Tab) 650 mg Q4H PRN PO 06/18/17 12:15 07/18/17 12:14 Ondansetron HCl (Zofran Inj) 4 mg Q6H PRN IV 06/18/17 12:15 07/18/17 12:14 Albuterol (Ventolin Hfa Inhaler) 2 puffs QID INH 06/18/17 17:00 07/18/17 16:59 06/19/17 09:44 2 PUFFS Ferrous Sulfate (Feosol Tab) 325 mg TID PO 06/18/17 21:00 07/18/17 20:59 06/19/17 09:41 325 MG Propranolol HCl (Inderal [place]) 60 mg DAILY PO 06/19/17 09:00 07/19/17 08:59 06/19/17 09:43 60 MG Topiramate (Topamax Tab) 200 mg BID PO 06/18/17 21:00 07/18/17 20:59 06/19/17 09:40 200 MG Bupropion HCl (Wellbutrin-Sr Tab) 150 mg DAILY PO 06/19/17 09:00 07/19/17 08:59 06/19/17 09:40 150 MG Buspirone HCl (Buspar Tab) 5 mg TID PO 06/18/17 21:00 07/18/17 20:59 06/19/17 09:42 5 MG Celecoxib (CeleBREX CAP) 200 mg DAILY PO 06/19/17 09:00 07/19/17 08:59 06/19/17 09:42 200 MG Quetiapine Fumarate (seroQUEL TAB) 50 mg QPM PO 06/18/17 21:00 07/18/17 20:59 06/18/17 20:23 50 MG Sertraline HCl (Zoloft Tab) 200 mg DAILY PO 06/19/17 09:00 07/19/17 08:59 06/19/17 09:40 200 MG Miscellaneous Information (Order Awaiting Action) 1 ea QAM N/A 06/18/17 14:45 07/18/17 14:44 Pantoprazole Sodium (Protonix Tab) 40 mg DAILY PO 06/19/17 09:00 07/19/17 08:59 06/19/17 09:39 40 MG Sodium Chloride 1,000 ml @ 100 mls/hr Q10H IV 06/18/17 16:00 07/18/17 15:59 06/19/17 06:33 100 MLS/HR Gadobutrol (Gadavist) 9 mmol UD PRN IV 06/18/17 17:30 06/22/17 17:29 Levothyroxine Sodium (Synthroid Tab) 50 mcg DAILYBB PO 06/20/17 06:00 07/19/17 05:59 Review of Systems Complete review of systems otherwise negative except for the above noted in history of present illness Physical Exam Vital Signs (Past 24 Hrs): Date Time Temp Pulse Resp B/P (MAP) Pulse Ox O2 Delivery O2 Flow Rate FiO2 06/19/17 08:19 36.8 55 16 111/74 (86) 98 Room Air 06/19/17 04:00 Room Air 06/19/17 03:58 36.6 49 18 98/64 (75) 97 Room Air 06/18/17 23:59 Room Air 06/18/17 23:56 111/74 (86) 06/18/17 23:39 36.6 49 16 91/59 (70) 97 Room Air 06/18/17 20:00 95 Room Air 06/18/17 19:28 36.7 53 18 118/77 (91) 95 Room Air 06/18/17 16:00 Room Air 06/18/17 15:37 36.6 53 16 111/75 (87) 97 Room Air 06/18/17 13:08 36.7 51 14 127/87 Room Air 06/18/17 13:07 36.7 51 14 127/87 (100) 100 Room Air 06/18/17 12:41 68 16 124/76 98 Room Air 06/18/17 11:03 72 16 114/73 98 Room Air 06/18/17 10:46 95 Room Air Gen.: Patient is alert and oriented in no acute distress lying in bed Heart: Regular rate and rhythm Extremities: No gross deformities or rashes noted Neurological examination: Mental status: Patient is alert and oriented to person place and time. Able to give his own history. Good fund of knowledge. Attention and concentration normal for the situation. Recent and remote memory intact Speech is fluent without any dysarthria or aphasia noted Cranial nerves: Funduscopic examination was unremarkable. No papilledema. Pupils equally round and reactive to light. Extraocular muscles intact without nystagmus. No facial asymmetry noted. Facial sensation intact. Tongue midline. Good palatal elevation. Good shoulder shrug bilaterally. Hearing grossly intact voice. Strength: 5/5 both proximal and distal in all extremities.no arm drift. Tone is normal. Patient initially did seem to have a decreased hand spool maker on the right, but with formal strength testing of finger flexion, was full strength. Sensation: Grossly intact to light touch in all extremities. She did decreased sensation on the right upper and lower extremity as well as the chest wall. Sensation changes split midline indicating likely nonphysiological factors. Deep tendon reflexes: +1 in bilateral biceps and patellar. Toes are downgoing to plantar stimulation bilaterally Coordination: Patient has good finger to nose without dysmetria Station within the bed is normal. Despite her complaints of tremors, did not see any significant tremors on today' s examination. Only had a trace action tremors with finger to nose testing. Laboratory Results Past 24 Hours: 06/19/17 07:06 Red Blood Count 4.50, Mean Corpuscular Volume 95.6, Mean Corpuscular Hemoglobin 30.7, Mean Corpuscular Hemoglobin Concent 32.1, Mean Platelet Volume 10.3, Neutrophils (%) (Auto) 74.3, Lymphocytes (%) (Auto) 13.0, Monocytes (%) (Auto) 7.3, Eosinophils (%) (Auto) 4.3, Basophils (%) (Auto) 0.6, Neutrophils # (Auto) 5.90, Lymphocytes # (Auto) 1.03, Monocytes # (Auto) 0.58, Eosinophils # (Auto) 0.34, Basophils # (Auto) 0.05 06/19/17 07:06 Test 06/19/17 07:06 White Blood Count 7.94 K/uL (4.8-10.8) Red Blood Count 4.50 M/uL (4.2-5.4) Hemoglobin 13.8 g/dL (12.0-16.0) Hematocrit 43.0 % (37-47) Mean Corpuscular Volume 95.6 fL (80-100) Mean Corpuscular Hemoglobin 30.7 pg (25-34) Mean Corpuscular Hemoglobin Concent 32.1 g/dl (32-36) Platelet Count 271 K/uL (130-400) Mean Platelet Volume 10.3 fL (7.4-10.4) Neutrophils (%) (Auto) 74.3 % Lymphocytes (%) (Auto) 13.0 % Monocytes (%) (Auto) 7.3 % Eosinophils (%) (Auto) 4.3 % Basophils (%) (Auto) 0.6 % Neutrophils # (Auto) 5.90 K/uL (1.4-6.5) Lymphocytes # (Auto) 1.03 K/uL (1.2-3.4) Monocytes # (Auto) 0.58 K/uL (0.11-0.59) Eosinophils # (Auto) 0.34 K/uL (0-0.5) Basophils # (Auto) 0.05 K/uL (0-0.2) RDW Standard Deviation 46.1 fL (36.4-46.3) RDW Coefficient of Variation 13.2 % (11.5-14.5) Immature Granulocyte % (Auto) 0.5 % Immature Granulocyte # (Auto) 0.04 K/uL (0.00-0.02) Prothrombin Time 10.6 SECONDS (9.0-12.0) Prothromb Time International Ratio 1.0 (0.9-1.1) Anion Gap 6.0 mmol/L (3-11) Est Creatinine Clear Calc Drug Dose 71.5 ml/min Estimated GFR () 73.9 Estimated GFR (Non- 63.8 BUN/Creatinine Ratio 13.6 (10-20) Calcium Level 9.0 mg/dl (8.5-10.1) Triglycerides Level 219 mg/dl (0-150) Cholesterol Level 257 mg/dl (0-200) HDL Cholesterol 54 mg/dl LDL Cholesterol, Calculated 159 mg/dl VLDL Cholesterol, Calculated 44 mg/dl Cholesterol/HDL Ratio 4.8 Free Thyroxine 0.66 ng/dl (0.80-1.60) Free Triiodothyronine 2.29 pg/ml (2.30-4.20) [place] Level 0.8 mMOL/L (0.6-1.2) Imaging As discussed in history of present illness Impression This is a 51-year-old female who presents with complaints of worsening tremors and staggering with gait over the last month. Likely secondary to metabolic etiologies including hypothyroid and mildly elevated lithium level. Complaints of visual flashes of light in vision could be ocular migraine, but should be evaluated by an dental hygienist to make sure that there is no other retinal etiologies. Plan Correct at the thyroidism and mild lithium toxicity. Could consider checking LFTs for further evaluation of metabolic etiologies for her symptoms. Recommend ophthalmology examination as an outpatient regarding visual symptoms. Otherwise his visual symptoms persist despite a normal ophthalmology examination and correction of metabolic etiologies, patient follow-up in neurology clinic with her neurologist Dr. Leung for treatment of ocular migraines. Thank you for allowing me to participate in this patient's care. If there is any questions or concerns, feel free to call/page me.
--- NOTE | 2017-06-19 10:53 | EEG Procedure Note ---
EEG Procedure Note Date of Service Jun 19, 2017. Start / End Times Start Time: 8:41 AM End Time: 9:01 AM Referring Physician LEIGHANN Pearson History This is a 51-year-old female with intermittent visual changes and tremors. EEG for further evaluation of possible seizure etiology. Home Medication List Scheduled Albuterol Hfa (Ventolin Hfa), 2 PUFFS INH QID Bupropion (Wellbutrin Sr), 150 MG PO DAILY Buspirone Hcl (Buspirone Hcl), 1 TAB PO TID Celecoxib (CeleBREX), 200 MG PO DAILY Ferrous Sulfate (Ferrous Sulfate), 325 MG PO TID Levothyroxine Sodium (Levothyroxine Sodium), 25 MCG PO DAILY Omeprazole (Prilosec), 20 MG PO DAILY Propranolol Hcl (Propranolol ER), 60 MG PO DAILY Quetiapine Fumarate (Seroquel), 50 MG PO QPM Sertraline (Zoloft), 200 MG PO DAILY Topiramate (Topamax), 200 MG PO BID Scheduled PRN Almotriptan Malate (Axert), 12.5 MG PO UD PRN for Migraine Miscellaneous Medications Cyanocobalamin (B12) [place] Carbonate ([place] Carbonate), 300 MG PO Inpatient Medication List Current Inpatient Medications Medications (Trade) Dose Ordered Sig/Aubrey Route Start Time Stop Time Status Last Admin Dose Admin Atorvastatin Calcium (Lipitor Tab) 40 mg QAM PO 06/18/17 12:15 07/18/17 12:14 06/19/17 09:41 40 MG Aspirin (Ecotrin Tab) 81 mg QAM PO 06/18/17 12:15 07/18/17 12:14 06/19/17 09:43 81 MG Miscellaneous Information (Pharmacist Discharge Med Rec Consult) 1 ea UD PRN N/A 06/18/17 12:15 07/18/17 12:14 Enoxaparin Sodium (Lovenox Inj) 40 mg Q24H SC 06/18/17 14:00 07/18/17 13:59 06/18/17 17:43 40 MG Acetaminophen (Tylenol Tab) 650 mg Q4H PRN PO 06/18/17 12:15 07/18/17 12:14 Ondansetron HCl (Zofran Inj) 4 mg Q6H PRN IV 06/18/17 12:15 07/18/17 12:14 Albuterol (Ventolin Hfa Inhaler) 2 puffs QID INH 06/18/17 17:00 07/18/17 16:59 06/19/17 09:44 2 PUFFS Ferrous Sulfate (Feosol Tab) 325 mg TID PO 06/18/17 21:00 07/18/17 20:59 06/19/17 09:41 325 MG Propranolol HCl (Inderal La Cap) 60 mg DAILY PO 06/19/17 09:00 07/19/17 08:59 06/19/17 09:43 60 MG Topiramate (Topamax Tab) 200 mg BID PO 06/18/17 21:00 07/18/17 20:59 06/19/17 09:40 200 MG Bupropion HCl (Wellbutrin-Sr Tab) 150 mg DAILY PO 06/19/17 09:00 07/19/17 08:59 06/19/17 09:40 150 MG Buspirone HCl (Buspar Tab) 5 mg TID PO 06/18/17 21:00 07/18/17 20:59 06/19/17 09:42 5 MG Celecoxib (CeleBREX CAP) 200 mg DAILY PO 06/19/17 09:00 07/19/17 08:59 06/19/17 09:42 200 MG Quetiapine Fumarate (seroQUEL TAB) 50 mg QPM PO 06/18/17 21:00 07/18/17 20:59 06/18/17 20:23 50 MG Sertraline HCl (Zoloft Tab) 200 mg DAILY PO 06/19/17 09:00 07/19/17 08:59 06/19/17 09:40 200 MG Miscellaneous Information (Order Awaiting Action) 1 ea QAM N/A 06/18/17 14:45 07/18/17 14:44 Pantoprazole Sodium (Protonix Tab) 40 mg DAILY PO 06/19/17 09:00 07/19/17 08:59 06/19/17 09:39 40 MG Sodium Chloride 1,000 ml @ 100 mls/hr Q10H IV 06/18/17 16:00 07/18/17 15:59 06/19/17 06:33 100 MLS/HR Gadobutrol (Gadavist) 9 mmol UD PRN IV 06/18/17 17:30 06/22/17 17:29 Levothyroxine Sodium (Synthroid Tab) 50 mcg DAILYBB PO 06/20/17 06:00 07/19/17 05:59 Description This is a 21 electrode EEG with a single channel dedicated to limited EKG. The electrodes were placed in accordance with the International 10-20 system. At the start of the recording the patient was in an awake state. Background was well organized and composed of symmetric mixed alpha and beta frequencies. There was a symmetric well-formed moderate amplitude 8-9 Hz posterior dominant rhythm that was reactive to eye opening and closure. Hyperventilation was not done. Intermittent photic stimulation at various frequencies produced no abnormalities. There was no state changes or sleep transients. There was intermittent generalized delta/theta slowing lasting 1-3 seconds. Interpretation This is a mildly abnormal routine EEG secondary to intermittent generalized delta/theta slowing. There was no electrographic seizures or epileptiform discharges. Clinical Correlation Intermittent generalized slowing indicates either a drowsy state versus mild encephalopathy of nonspecific etiology.
--- NOTE | 2017-06-19 10:55 | Medical Student: [facility] ---
Consultation Date of Consultation: Jun 19, 2017. Attending Physician: Dr. Bradshaw Reason for Consultation: R-sided ataxia, bilateral tremors, blurry vision/floaters History of Present Illness pt is a 51 yo R-handed F with a one-month hx of bilateral upper extremity tremors with associated numbness, one-month hx of floaters in the eyes, and a 2- day hx of ataxia. She had contacted her PCP earlier regarding these symptoms and was told to go to the ED for w/u. Pt was in her usual state of health until about one month ago when she noticed floaters in her eyes which she described as a light going across her visual field. During the first episode, she felt like someone was shining a laser in her room, but she checked and this was not the case. Over the past month, this has been increasing in frequency, and she reports having them daily. She also reports of minor blurry vision and photophobia, which has sometimes interfered with work. Pt denies headaches with the floaters. Pt has a hx of migraines for which she sees Dr. Leung and is on topomax and propanolol for prophylaxis. Her last migraine was in December. She denies ever having floaters with her migraines. The last time she saw an manager of [employer] was Sep 2015. Around the same time as the onset of the vision problems, pt noticed bilateral tremors in her upper extremities. They occur at rest but is very minor, and increases significantly with the use of her hands (holding objects). She says the right hand is worse than the left, and the right hand also experiences sensation change that she describes as numbness. There is some associated numbness she noticed with the right hand. No feelings of hot or cold. No tingling or pinprick sensation. She has never had anything similar in the past, and denies hx of neck or upper pain injury/trauma. She denies any pain coming from the neck and shoots down to the arms. Two days ago at work when she is going on a water break, pt staggered to the right suddenly when her right leg began to feel weak, and was stopped by the shelf/cabinet, which prevented her from falling. She denies falling, hitting her head or LOC. Afterwards, she was able to go back to what she was doing, but later on in the day experienced several similar episodes. Does not report feeling dizzy or nauseous when this occurred. Also reports feeling numb in the right leg. She continued to have some staggering the morning before coming to the hospital. She reports being started on lithium approximately two months ago, but otherwise no med adjustments. Was sick about a month ago with ear infection, sinus infection, and bronchitis. [place] level mildly elevated at 1.3 and TSH elevated at 7.48 Past Medical/Surgical History Medical History: Anxiety Chronic back pain Depression Hypertension Hypothyroidism Insomnia Lumbago Lumbar disc displacement Lumbosacral spondylosis Migraines Restless leg Syndrome Surgical History: appendectomy tubal ligation in 1992 endometrial ablation in 09/2016 Family History Father from heart failure at approximately age 45 Mother with HTN Sibling(s) with HTN, aneurysm, and cancer (type unknown) Social History Smoking Status: Never Smoker History of Alcohol Use: No Drug Use: none Marital Status: Occupation Status: employed drinks one bottle of pepsi per day; no other caffeine use. Review of Systems Constitutional: + weakness, No fever, No chills, No sweats, No weight loss Eyes: + see HPI, No eye pain, No diplopia ENT: No hearing loss, No sore throat, No tinnitus, No trouble swallowing Respiratory: No cough, No sputum, No wheezing, No shortness of breath, No dyspnea on exertion Cardiac: No chest pain, No orthopnea, No edema Abdomen: No pain, No nausea, No vomiting, No diarrhea, No constipation Musculoskeletal: No joint pain, No muscle pain Neurologic: + weakness, + numbness/tingling, No memory loss Psychiatric: No depression symptoms Heme: No abnormal bleeding/bruising Skin: No rash, No itch Allergies Coded Allergies: Naproxen (Unverified Allergy, Mild, NAUSEA, 06/18/17) NSAIDs (Verified Adverse Reaction, Unknown, has ulcer, 06/18/17) Medications Current Inpatient Medications Medications (Trade) Dose Ordered Sig/Aubrey Route Start Time Stop Time Status Last Admin Dose Admin Atorvastatin Calcium (Lipitor Tab) 40 mg QAM PO 06/18/17 12:15 07/18/17 12:14 06/18/17 17:43 40 MG Aspirin (Ecotrin Tab) 81 mg QAM PO 06/18/17 12:15 07/18/17 12:14 06/18/17 17:43 81 MG Miscellaneous Information (Pharmacist Discharge Med Rec Consult) 1 ea UD PRN N/A 06/18/17 12:15 07/18/17 12:14 Enoxaparin Sodium (Lovenox Inj) 40 mg Q24H SC 06/18/17 14:00 07/18/17 13:59 06/18/17 17:43 40 MG Acetaminophen (Tylenol Tab) 650 mg Q4H PRN PO 06/18/17 12:15 07/18/17 12:14 Ondansetron HCl (Zofran Inj) 4 mg Q6H PRN IV 06/18/17 12:15 07/18/17 12:14 Albuterol (Ventolin Hfa Inhaler) 2 puffs QID INH 06/18/17 17:00 07/18/17 16:59 06/18/17 17:43 2 PUFFS Ferrous Sulfate (Feosol Tab) 325 mg TID PO 06/18/17 21:00 07/18/17 20:59 06/18/17 20:23 325 MG Propranolol HCl (Inderal La Cap) 60 mg DAILY PO 06/19/17 09:00 07/19/17 08:59 Topiramate (Topamax Tab) 200 mg BID PO 06/18/17 21:00 07/18/17 20:59 06/18/17 20:24 200 MG Bupropion HCl (Wellbutrin-Sr Tab) 150 mg DAILY PO 06/19/17 09:00 07/19/17 08:59 Buspirone HCl (Buspar Tab) 5 mg TID PO 06/18/17 21:00 07/18/17 20:59 06/18/17 20:22 5 MG Celecoxib (CeleBREX CAP) 200 mg DAILY PO 06/19/17 09:00 07/19/17 08:59 Quetiapine Fumarate (seroQUEL TAB) 50 mg QPM PO 06/18/17 21:00 07/18/17 20:59 06/18/17 20:23 50 MG Sertraline HCl (Zoloft Tab) 200 mg DAILY PO 06/19/17 09:00 07/19/17 08:59 Miscellaneous Information (Order Awaiting Action) 1 ea QAM N/A 06/18/17 14:45 07/18/17 14:44 Pantoprazole Sodium (Protonix Tab) 40 mg DAILY PO 06/19/17 09:00 07/19/17 08:59 Sodium Chloride 1,000 ml @ 100 mls/hr Q10H IV 06/18/17 16:00 07/18/17 15:59 06/19/17 06:33 100 MLS/HR Gadobutrol (Gadavist) 9 mmol UD PRN IV 06/18/17 17:30 06/22/17 17:29 Levothyroxine Sodium (Synthroid Tab) 50 mcg DAILYBB PO 06/20/17 06:00 07/19/17 05:59 Physical Exam Date Time Temp Pulse Resp B/P (MAP) Pulse Ox O2 Delivery O2 Flow Rate FiO2 06/19/17 08:19 36.8 55 16 111/74 (86) 98 Room Air 06/19/17 04:00 Room Air 06/19/17 03:58 36.6 49 18 98/64 (75) 97 Room Air 06/18/17 23:59 Room Air 06/18/17 23:56 111/74 (86) 06/18/17 23:39 36.6 49 16 91/59 (70) 97 Room Air 06/18/17 20:00 95 Room Air 06/18/17 19:28 36.7 53 18 118/77 (91) 95 Room Air 06/18/17 16:00 Room Air 06/18/17 15:37 36.6 53 16 111/75 (87) 97 Room Air 06/18/17 13:08 36.7 51 14 127/87 Room Air 06/18/17 13:07 36.7 51 14 127/87 (100) 100 Room Air 06/18/17 12:41 68 16 124/76 98 Room Air 06/18/17 11:03 72 16 114/73 98 Room Air 06/18/17 10:46 95 Room Air General Appearance: WD/WN, no apparent distress Eyes: bilateral eyes normal inspection, bilateral eyes PERRL, bilateral eyes EOMI, bilateral eyes abnormal EOM ENT: normal ENT inspection, hearing grossly normal Neck: supple, no adenopathy, no carotid bruits Respiratory: chest non-tender, lungs clear, normal breath sounds, no respiratory distress Cardiovascular: regular rate, rhythm, no edema, no gallop Musculoskeletal: normal, normal strength (5/5 throughout) (see additional comments) Neurologic/Psychiatric: firebreak cutter II-XII nml as tested Neurological CN I - did not test II - normal visual field and visual acuity. III, IV, - normal EOM, no diplopia, direct and consensual light reflexes intact V - facial sensation intact and equal bilaterally VII - face symmetric, normal smile and eye closure VIII - hearing normal IX, X - uvula midline XI - head turning and shoulder shrugging intact and equal bilaterally XII - tongue midline, normal movement, no atrophy Cerbellum Finger to nose test normal bilaterally Motor Strength Strength 5/5 bilaterally, but minor resource engineer strength reduction of right hand compared to left on examination. Sensation Normal on left side, reports reduced("different") sensation of right upper extremity and right lower extremity. Reports sensation change at midline of upper chest. Laboratory Results Last 24 Hours Test 06/18/17 10:04 06/18/17 10:05 06/18/17 10:08 06/18/17 13:43 Bedside Glucose 127 mg/dl Estimated Average Glucose 105 mg/dl Hemoglobin A1c 5.3 % White Blood Count 11.94 K/uL Red Blood Count 4.65 M/uL Hemoglobin 14.3 g/dL Hematocrit 44.2 % Mean Corpuscular Volume 95.1 fL Mean Corpuscular Hemoglobin 30.8 pg Mean Corpuscular Hemoglobin Concent 32.4 g/dl Platelet Count 322 K/uL Mean Platelet Volume 10.2 fL Neutrophils (%) (Auto) 78.4 % Lymphocytes (%) (Auto) 9.9 % Monocytes (%) (Auto) 6.8 % Eosinophils (%) (Auto) 3.5 % Basophils (%) (Auto) 0.6 % Neutrophils # (Auto) 9.37 K/uL Lymphocytes # (Auto) 1.18 K/uL Monocytes # (Auto) 0.81 K/uL Eosinophils # (Auto) 0.42 K/uL Basophils # (Auto) 0.07 K/uL RDW Standard Deviation 46.3 fL RDW Coefficient of Variation 13.4 % Immature Granulocyte % (Auto) 0.8 % Immature Granulocyte # (Auto) 0.09 K/uL Prothrombin Time 10.4 SECONDS Prothromb Time International Ratio 1.0 Activated Partial Thromboplast Time 26.6 SECONDS Partial Thromboplastin Ratio 1.0 Sodium Level 140 mmol/L Potassium Level 3.6 mmol/L Chloride Level 110 mmol/L Carbon Dioxide Level 24 mmol/L Anion Gap 6.0 mmol/L Blood Urea Nitrogen 12 mg/dl Creatinine 1.06 mg/dl Est Creatinine Clear Calc Drug Dose 70.0 ml/min Estimated GFR () 71.4 Estimated GFR (Non- 61.6 BUN/Creatinine Ratio 11.6 Random Glucose 91 mg/dl Calcium Level 9.1 mg/dl Magnesium Level 2.4 mg/dl Troponin I < 0.015 ng/ml Thyroid Stimulating Hormone (TSH) 7.480 uIu/ml [place] Level 1.3 mMOL/L Test 06/19/17 07:06 White Blood Count 7.94 K/uL Red Blood Count 4.50 M/uL Hemoglobin 13.8 g/dL Hematocrit 43.0 % Mean Corpuscular Volume 95.6 fL Mean Corpuscular Hemoglobin 30.7 pg Mean Corpuscular Hemoglobin Concent 32.1 g/dl Platelet Count 271 K/uL Mean Platelet Volume 10.3 fL Neutrophils (%) (Auto) 74.3 % Lymphocytes (%) (Auto) 13.0 % Monocytes (%) (Auto) 7.3 % Eosinophils (%) (Auto) 4.3 % Basophils (%) (Auto) 0.6 % Neutrophils # (Auto) 5.90 K/uL Lymphocytes # (Auto) 1.03 K/uL Monocytes # (Auto) 0.58 K/uL Eosinophils # (Auto) 0.34 K/uL Basophils # (Auto) 0.05 K/uL RDW Standard Deviation 46.1 fL RDW Coefficient of Variation 13.2 % Immature Granulocyte % (Auto) 0.5 % Immature Granulocyte # (Auto) 0.04 K/uL Prothrombin Time 10.6 SECONDS Prothromb Time International Ratio 1.0 Sodium Level 143 mmol/L Potassium Level 3.8 mmol/L Chloride Level 114 mmol/L Carbon Dioxide Level 24 mmol/L Anion Gap 6.0 mmol/L Blood Urea Nitrogen 14 mg/dl Creatinine 1.03 mg/dl Est Creatinine Clear Calc Drug Dose 71.5 ml/min Estimated GFR () 73.9 Estimated GFR (Non- 63.8 BUN/Creatinine Ratio 13.6 Random Glucose 95 mg/dl Calcium Level 9.0 mg/dl Triglycerides Level 219 mg/dl Cholesterol Level 257 mg/dl HDL Cholesterol 54 mg/dl LDL Cholesterol, Calculated 159 mg/dl VLDL Cholesterol, Calculated 44 mg/dl Cholesterol/HDL Ratio 4.8 Free Thyroxine 0.66 ng/dl Free Triiodothyronine 2.29 pg/ml [place] Level 0.8 mMOL/L Assessment & Plan pt is a 51 yo F with bilateral tremors of the upper extremities, right sided ataxia, and blurry vision/floaters. Hx notable for migraines, last episode in December 2016. Recent medication change include starting on lithium 1 month prior to onset of tremors and floaters. Floaters/vision changes - DDx: migraines (has been well controlled, and no associated headache with vision problem); posterior vitreal detachment, retinal tear, idiopathic - Plan: obtain outpatient f/u with ophthalmology for dilated eye exam Ataxia - DDx: stroke (CT and MRI normal), cerebellar dysfunction (normal finger to nose test on examination). metabolic (lithium level mildly elevated at 1.3, TSH elevated), multiple sclerosis (less likely given normal MRI finding and elevated lithium and TSH) - Plan - adjust lithium and thyroid meds to see if symptoms resolve. Tremors - DDx: stroke (CT and MRI normal), Parkinson's (onset was sudden instead of slow ), metabolic (lithium level mildly elevated at 1.3, TSH elevated), essential tremor (possible, less likely given finding on lab work; pt is on beta raza for migraine ppx), multiple sclerosis (less likely given normal MRI finding and elevated lithium and TSH) - Plan - adjust lithium and thyroid meds to see if symptoms resolve. Consider LFT given the possibility of a metabolic etiology for pt's symptoms. Neurology attending addendum: Patient was seen and evaluated with medical student. Please see my separate neurology consult note for full evaluation and recommendations. -Ida Bradshaw,
--- NOTE | 2017-06-19 11:36 | Discharge Summary ---
Discharge Summary Date of Service Jun 19, 2017. Discharge Summary Admission Date: Jun 18, 2017 at 12:08 Discharge Disposition: Home Principal Diagnosis: Gait disturbance, bilateral hand tremors 2/2 metabolic abnormalities (elevated lithium level, hypothyroid) Secondary Diagnoses/Problems: Visual floaters, anxiety, depression, insomnia, hypothyroidism, migraines, chronic back pain Consultations: Neurology Medication Reconciliation New Medications: Levothyroxine Sodium (Synthroid) 50 Mcg Tab 50 MCG PO DAILYBB for 30 Days, #30 TAB Continued Medications: Albuterol Hfa (Ventolin Hfa) 200 Puffs/19730 Mcg Aers 2 PUFFS INH QID Almotriptan Malate (Axert) 12.5 Mg Tab 12.5 MG PO UD PRN for Migraine Bupropion (Wellbutrin Sr) 150 Mg Ertab 150 MG PO DAILY Buspirone Hcl (Buspirone Hcl) 5 Mg Tab 1 TAB PO TID for Anxiety/Agitation for 30 Days, #90 TAB 2 Refills Celecoxib (CeleBREX) 200 Mg Cap 200 MG PO DAILY Cyanocobalamin (B12) 1,000 Mcg Tab Ferrous Sulfate (Ferrous Sulfate) 325 Mg Tab 325 MG PO TID Omeprazole (Prilosec) 20 Mg Capcr 20 MG PO DAILY Propranolol Hcl (Propranolol ER) 60 Mg Capcr 60 MG PO DAILY Quetiapine Fumarate (Seroquel) 50 Mg Tab 50 MG PO QPM Sertraline (Zoloft) 100 Mg Tab 200 MG PO DAILY, TAB Topiramate (Topamax) 200 Mg Tab 200 MG PO BID Discontinued Medications: Levothyroxine Sodium (Levothyroxine Sodium) 25 Mcg Tab 25 MCG PO DAILY [place] Carbonate ([place] Carbonate) 150 Mg Cap 300 MG PO, CAP Admission Information HPI (per Admitting provider): This is a 51yo F with a PMH of anxiety, depression, chronic migraines, hypothyroidism and chronic back pain who presents with visual changes and bilateral arm tremors x 1 month and a staggering gait x 1 day. Patient was in her normal state of health until a month ago when she started to noticed a "floater" in her R eye that comes and goes. Describes it as a white light that moves across her visual field with associated photophobia. Denies any change to visual acuity, eye pain or tunnel/curtain vision. Has not seen the eye doctor but denies any history of visual floaters. Also started to notice bilateral tremors in hands a month ago that have progressed to include her forearms as well. States that she mainly notices the tremors when she is using her arms for a task, not at rest. Yesterday, patient was at work when she started to "tip over" towards her right side when walking. 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 Was carrying auto parts yesterday and due to imbalanced gait, fell into shelves on her R side. Denies a fall or LOC. Continued to notice herself staggering to the right while ambulating last night and this morning. Associated symptoms include hot and cold paresthesias in R arm and leg. Called PCP but they recommended the patient come to ER for further evaluation. Denies any facial droop, slurred speech, headache, visual changes, vertigo, weakness or numbness in any extremity. Denies any previous history of stroke, clotting disorder or heart disease personally or within family. Is not on blood thinners. Follows with Dr. Whitaker for migraines. On topomax and propranolol for prophylaxis. Takes lithium, BuSpar, Wellbutrin and Zoloft for anxiety/ depression and Seroquel for insomnia. Physical Exam (per Admitting): General Appearance: + mild distress Head: normocephalic, atraumatic Eyes: normal inspection, PERRL, EOMI, sclerae normal, funduscopic exam normal ENT: normal ENT inspection, hearing grossly normal, pharynx normal (moist mucous membranes ) Neck: supple, thyroid normal, trachea midline Respiratory/Chest: chest non-tender, lungs clear, normal breath sounds, no respiratory distress, no accessory muscle use Cardiovascular: regular rate, rhythm, no murmur, normal peripheral pulses Abdomen/GI: normal bowel sounds, non tender, soft, no organomegaly Back: normal inspection Extremities/Musculoskelatal: normal inspection, no calf tenderness, no pedal edema, non-tender Neurologic/Psych: clinical sciences professor II-XII nml as tested, no motor/sensory deficits (FAROM , 5/5 TONY in all extremities. Light and sharp touch intact. Cerebellar tests intact. ), alert, normal mood/affect (Flattened ), oriented x 3, + abnormal gait (Ataxic gait favoring R side. Imbalanced. ) Skin: normal color, warm/dry, no rash Hospital Course This is a 51yo F with a PMH of anxiety, depression, chronic migraines, hypothyroidism and chronic back pain who presents with visual changes and bilateral arm tremors x 1 month and a staggering gait x 1 day. Ataxic gait, bilateral tremors, R-sided paresthesias: resolving -Per patient, bilateral intention tremors and R-sided paresthesias resolved -Improved gait on exam. Still imbalanced but no longer R-leaning, ataxic -Per neuro evaluation, likely 2/2 metabolic etiologies including hypothyroid and mildly elevated lithium level -Increased Synthroid dose. Plan to recheck thyroid labs as out-patient -Per discussion with out-patient psychiatrist, we are holding lithium until patient returns to clinic -CVA work up negative thus far: CT head, Brain MRI, MRA head, MRA neck unremarkable -EEG without electrographic seizures or epileptiform discharges -PT/OT eval performed and patient cleared to return home -Follow up with Dr Whitaker out-patient Visual floaters: -Present x 1 mo -With associated photophobia -No visual acuity change, pain, curtains/tunnel vision -Per neuro, could be an ocular migraine but should be evaluated by an brooch and bracelet maker to rule out any other retinal etiologies Anxiety/depression: -Managed primarily by [facility] psychiatrist and PCP -Has been encouraged to see counselor -On Zoloft, wellbutrin, buspar -Seroquel for insomnia -Denies SI/HI currently. States that mood is stable Hypothyroidism: -TSH elvated to 7.48 -Free T4 low at 0.66, T3 low at 2.29 -Increased Synthroid dose to 50mcg daily -Repeat thyroid studies as out-patient H/o migraines: -Stable -Continue home dose Topamax, propranolol -Triptan PRN Chronic back pain: -Stable -Cont home dose gabapentin Total time spent on discharge = 35 This includes examination of the patient, discharge planning, medication reconciliation, and communication with other providers. Discharge Instructions Discharge Instructions Date of Service Jun 19, 2017. Admission Reason for Admission: Ataxia, Tremor Of Both Hands Discharge Discharge Diagnosis / Problem: Gait disturbance and bilateral hand tremor 2/2 metabolic abnormalities Discharge Goals Goal(s): Improve function Activity Recommendations Activity Limitations: resume your previous activity . Instructions / Follow-Up Instructions / Follow-Up You were admitted for evaluation of tremors, visual disturbance and abnormal walk. Your work-up for a stroke was negative. The symptoms you are having are likely explained by abnormal lab values. Your labwork showed abnormal thyroid levels. Your Levothyroxine dose was increased to 50mcg daily. Please have thyroid lab work re-checked with Dr. Arevalo. Also, your lithium level in the blood is elevated. After discussion with your psychiatrist, we are stopping your lithium. Please follow up with your psychiatrist, Dr. Vanessa at [facility] for further management of lithium. A hospital follow-up appointment is scheduled: on 06/21/2017 at 11:00 AM Jordyn Arevalo MD Internal Medicine [place] [phone]. Please schedule an appointment with your eye doctor for further evaluation of visual floater. Please follow up with your neurologist, Dr. Whitaker. It was a pleasure taking care of you. You can reach the [facility] Hospitalist team at [facility] by calling [phone] if you have any questions or concerns. Take care of yourself. Mary Becerril PA-C [facility] Hospitalist Current Hospital Diet Patient's current hospital diet: AHA Diet (Heart Healthy) Discharge Diet Recommended Diet: Regular Diet Pending Studies Studies pending at discharge: no Laboratory Results Hemoglobin A1c Test 06/18/17 10:05 Range/Units Estimated Average Glucose 105 mg/dl Hemoglobin A1c 5.3 4.5-5.6 % Lipid Panel Test 06/19/17 07:06 Range/Units Triglycerides Level 219 H 0-150 mg/dl Cholesterol Level 257 H 0-200 mg/dl HDL Cholesterol 54 mg/dl Cholesterol/HDL Ratio 4.8 LDL Cholesterol, Calculated 159 mg/dl Medical Emergencies . Who to Call and When: Medical Emergencies: If at any time you feel your situation is an emergency, please call 911 immediately. . Non-Emergent Contact Non-Emergency issues call your: Primary Care Provider . Past History Medical & Surgical History: (1) Anxiety (2) Depression (3) Insomnia (4) Chronic back pain (5) Hypothyroidism (6) Migraines . "Provider Documentation" section prepared by Mary Becerril. Attending Addendum; The patient was seen by me before discharge. The above documents have been reviewed and approved by me. Agree with the plan. Dr Christal Espinoza Additional Copies To Madhu Leung M.D.
--- NOTE | 2017-06-19 13:06 | Discharge Instructions ---
Discharge Instructions Date of Service Jun 19, 2017. Admission Reason for Admission: Ataxia, Tremor Of Both Hands Discharge Discharge Diagnosis / Problem: Gait disturbance and bilateral hand tremor 2/2 metabolic abnormalities Discharge Goals Goal(s): Improve function Activity Recommendations Activity Limitations: resume your previous activity . Instructions / Follow-Up Instructions / Follow-Up You were admitted for evaluation of tremors, visual disturbance and abnormal walk. Your work-up for a stroke was negative. The symptoms you are having are likely explained by abnormal lab values. Your labwork showed abnormal thyroid levels. Your synthroid dose was increased to 50mcg daily. Please have thyroid labwork re-checked with Dr. Arevalo. Also, your lithium level in the blood is elevated. After discussion with your psychiatrist, we are stopping your lithium. Please follow up with your psychiatrist, Dr. Vanessa at [facility] for further management of lithium. A hospital follow-up appointment is scheduled: on 06/21/2017 at 11:00 AM Jordyn Arevalo MD Internal Medicine [place] [id number]. Please schedule an appointment with your eye doctor for further evaluation of visual floater. Please follow up with your neurologist, Dr. Whitaker. It was a pleasure taking care of you. You can reach the [facility] Hospitalist team at [facility] by calling [phone] if you have any questions or concerns. Take care of yourself. Mary Becerril PA-C [facility] Hospitalist Current Hospital Diet Patient's current hospital diet: AHA Diet (Heart Healthy) Discharge Diet Recommended Diet: Regular Diet Pending Studies Studies pending at discharge: no Laboratory Results Hemoglobin A1c Test 06/18/17 10:05 Range/Units Estimated Average Glucose 105 mg/dl Hemoglobin A1c 5.3 4.5-5.6 % Lipid Panel Test 06/19/17 07:06 Range/Units Triglycerides Level 219 H 0-150 mg/dl Cholesterol Level 257 H 0-200 mg/dl HDL Cholesterol 54 mg/dl Cholesterol/HDL Ratio 4.8 LDL Cholesterol, Calculated 159 mg/dl Medical Emergencies . Who to Call and When: Medical Emergencies: If at any time you feel your situation is an emergency, please call 911 immediately. . Non-Emergent Contact Non-Emergency issues call your: Primary Care Provider . Past History Medical & Surgical History: (1) Anxiety (2) Depression (3) Insomnia (4) Chronic back pain (5) Hypothyroidism (6) Migraines . "Provider Documentation" section prepared by Mary Becerril. . VTE Core Measure Inpt VTE Proph given/why not?: Enoxaparin (Lovenox)SQ
[2017-06-19] MEDS: ENOXAPARIN 40 MG/0.4 ML SYR SC SCH (13:53)
[2017-06-19 15:25] VITALS: BP 104/69; PULSE 61; TEMP 37.1; O2SAT 97
[2017-06-19 16:00] VITALS: O2SAT 96
[2017-06-19] MEDS ORDERED: SYN50 PO (16:17)
[2017-06-19 16:40] VITALS: BP 104/69; PULSE 61; TEMP 37.1; O2SAT 97
[2017-06-20] MEDS ORDERED: LEVOTHYROXINE 50 MCG TAB PO SCH (06:00)
== END 2017-06-19 17:05 | disposition home or self-care (01) | DRG 93 ==
LOC: C.EDB 09:35 → C.2T 12:08 → ENRESERV 12:18 → C.2T 17:43
PROVIDERS: ADMIT Hospitalist; ATTEND Internal Medicine
DX: R26.9 Unspecified abnormalities of gait and mobility (principal); R25.1 Tremor, unspecified; E03.9 Hypothyroidism, unspecified; H43.399 Other vitreous opacities, unspecified eye; F41.9 Anxiety disorder, unspecified; F32.9 Major depressive disorder, single episode, unspecified; G47.00 Insomnia, unspecified; G43.909 Migraine, unspecified, not intractable, without status migrainosus; G89.29 Other chronic pain; R20.2 Paresthesia of skin; Z82.49 Family history of ischemic heart disease and other diseases of the circulatory system

== ENCOUNTER → 2017-09-14 | Outpatient (CLI) | payer OTHER ==
[~2017-09-14] MED LIST changes: +BUSP5TAB59 PO; +CYAN100073; -LEVO25TA5 PO; +SYN50 PO
--- NOTE | 2017-09-14 11:41 | DIAGNOSTIC IMAGING REPORT ---
L-SPINE MIN 4 VIEWS ROUTINE CLINICAL HISTORY: Low back pain with radiculopathy. Lower extremity numbness. COMPARISON: Lumbar spine MRI June 16, 2015. FINDINGS: Alignment of the lumbar spine is anatomic. Vertebral body heights are maintained. No fracture or suspicious lesion is present. Disc spaces are preserved. There is mild multilevel endplate osteophytosis. IMPRESSION: 1. No lumbar spine fracture. 2. Preserved disc spaces with mild multilevel endplate osteophytosis. Electronically signed by: Jake Grimes M.D. 09/14/2017 11:40 AM Dictated Date/Time: 09/14/2017 11:38 AM
== END | disposition home or self-care (01) ==
LOC: C.RAD 10:29
PROVIDERS: ATTEND Psychiatry & Neurology Neurology
DX: M54.16 Radiculopathy, lumbar region (principal); M25.78 Osteophyte, vertebrae

== ENCOUNTER → 2017-09-24 | Outpatient (CLI) | payer OTHER ==
--- NOTE | 2017-09-24 17:05 | DIAGNOSTIC IMAGING REPORT ---
MRI LUMBAR SPINE W/O CONTRAST CLINICAL HISTORY: Low back pain with bilateral leg radiculopathy. TECHNIQUE: Sagittal and axial T1, T2 and STIR images were obtained. COMPARISON STUDY: June 16, 2015 OBSERVATIONS: The vertebral bodies and posterior elements appear intact. There is no abnormal bony signal present to suggest a marrow replacement process. L1-2: No disc protrusions or extrusions. No evidence of spinal canal or neural foraminal compromise. L2-3: There is a minimal disc bulge asymmetric to the right. There is no significant spinal or foraminal stenosis L3-4: No disc protrusions or extrusions. No evidence of spinal canal or neural foraminal compromise. L4-5: No disc protrusions or extrusions. No evidence of spinal canal or neural foraminal compromise. L5-S1: There is a small right posterior lateral disc protrusion. The disc material abuts the right S1 nerve root. The conus medullaris and cauda equina appear normal. IMPRESSION: Small right posterior lateral disc protrusion at the L5-S1 level. The disc material abuts the right S1 nerve root. Electronically signed by: Kiran Peña M.D. 09/24/2017 5:03 PM Dictated Date/Time: 09/24/2017 4:59 PM
== END | disposition home or self-care (01) ==
LOC: C.MRI 15:48
PROVIDERS: ATTEND Psychiatry & Neurology Neurology
DX: M51.17 Intervertebral disc disorders with radiculopathy, lumbosacral region (principal)

== ENCOUNTER → 2018-03-21 | Outpatient (CLI) | payer OTHER ==
[~2018-03-21] MED LIST changes: -BUPR-79 PO; +BUPR-83 PO; +BUPRTAB51 PO; +BUSP15TA70 PO; -BUSP5TAB59 PO; +CIPR-304 OR; -CLB/200 PO; -CYAN100073; -FERR325T5 PO; -INDSR/60 PO; +LISI-461 PO; +LORA-741 PO; +PROP120C PO; -QUET1TAB32 PO; +QUET1TAB34 PO; -SYN50 PO; +SYN75 PO; -TOPI200T14 PO; +ZNF/4 PO
--- NOTE | 2018-03-21 10:16 | EEG Procedure Note ---
EEG Procedure Note Date of Service Mar 21, 2018. Start / End Times Start Time: 854 End Time: 915 Referring Physician Iliana Rivas PA-C History 52-year-old history of episodic dizziness and lightheadedness, question seizures Home Medication List Scheduled Bupropion (Wellbutrin), 100 MG PO DAILY Bupropion (Wellbutrin-Xl), 300 MG PO DAILY Buspirone Hcl (Buspar), 15 MG PO TID Ciprofloxacin HCl (Ciprofloxacin), 1 TAB OR BID Levothyroxine Sodium (Synthroid), 75 MCG PO DAILYBB Lisinopril (Zestril), 10 MG PO DAILY Omeprazole (Prilosec), 20 MG PO DAILY Propranolol Hcl (Propranolol Hcl Er), 120 MG PO DAILY Quetiapine Fumarate (Seroquel), 100 MG PO HS Sertraline (Zoloft), 200 MG PO DAILY Scheduled PRN Albuterol Hfa (Ventolin Hfa), 2 PUFFS INH QID PRN for SOB/Wheezing Almotriptan Malate (Axert), 12.5 MG PO UD PRN for Migraine Lorazepam (Ativan), 0.5 MG PO HS PRN for Anxiety/Insomnia Tizanidine (Tizanidine HCl), 4 MG PO BID PRN for Muscle Spasms Description This is a 21 electrode EEG with a single channel dedicated to limited EKG. The electrodes were placed in accordance with the International 10-20 system. Interpretation the predominant background activity consists of a fairly well modulated 10 hertz rhythm of up to 70 microvolts in amplitude seen over the posterior head regions bilaterally. This activity attenuates nicely with eye opening and other alerting procedures. A mild amount of muscle and movement artifact activity contaminated the recording , particularly in the bifrontal head regions , but did not hinder interpretation to any significant degree. photic stimulation produced some driving response at mid flash frequencies with no abnormal responses noted. Hyperventilation was performed for 3 minutes with good effort and again no abnormalities were seen. Throughout this recording no focal abnormalities, potentially epileptogenic discharges, or abnormal slow activity was seen. The patient did not inner drowsy state or sleep. In summary this study is normal during the wakeful state. No focal abnormalities are noted no potentially epileptogenic discharges were seen. Clinical Correlation The absence of potentially epileptogenic activity, does not exclude a seizure disorder since inter ictally EEGs can be normal and clinical correlation is required.
== END | disposition home or self-care (01) ==
LOC: C.NEUR 08:21
PROVIDERS: ATTEND Physician Assistant
DX: R55 Syncope and collapse (principal); Z79.899 Other long term (current) drug therapy

== ENCOUNTER → 2018-04-09 | Outpatient (CLI) | payer OTHER ==
[~2018-04-09] MED LIST changes: +OPTIRAY 320 IV PRN
--- NOTE | 2018-04-11 08:18 | DIAGNOSTIC IMAGING REPORT ---
CT NECK ANGIO WITH CONTRAST CLINICAL HISTORY: Vertigo, presyncope. COMPARISON STUDY: MRI study performed May 2017 TECHNIQUE: CT angiography was performed from the aortic arch to the skull base. MIP imaging was performed. The patient was scanned in a dynamic helical fashion during intravenous administration of 116 cc of Optiray 320. A dose lowering technique was utilized adhering to the principles of ALARA. CT DOSE: 503.53 mGy.cm Technique: CT angiogram of the carotid and vertebral arteries was obtained using intravenous contrast and 3-D reconstruction. NASCET criteria was utilized. Findings: The right carotid revealed no evidence of aneurysm and no evidence of dissection. There is no evidence of hemodynamic significant stenosis. The left carotid revealed no evidence of hemodynamic significant stenosis. There is no evidence of aneurysm. There is no evidence of dissection. There is no evidence of hemodynamically significant vertebral stenosis. There is no evidence of vertebral dissection. IMPRESSION: No evidence of hemodynamically significant carotid or vertebral artery stenosis. No evidence of dissection. Electronically signed by: Kiran Peña M.D. 04/09/2018 9:15 AM Dictated Date/Time: 04/09/2018 9:12 AM
== END | disposition home or self-care (01) ==
LOC: C.CTS 08:33
PROVIDERS: ATTEND Physician Assistant
DX: R55 Syncope and collapse (principal); R42 Dizziness and giddiness